=== PATIENT | male | born 1945 | race Hispanic/Latino ===

== ENCOUNTER 2018-04-01 10:40 | Observation (INO) | payer MEDICARE, OTHER ==
[2018-03-31 11:46] LABS: BASOPHILS # (AUTO) 0.1 (0.0-0.1); BASOPHILS % 0.6 % (0.0-1.0); EOSINOPHILS # (AUTO) 0.2 (0.0-0.4); EOSINOPHILS % 2.4 % (0.0-6.0); HEMATOCRIT 41.4 % (38.2-49.6); HEMOGLOBIN 14.1 g/dL (14.0-18.0); LYMPHOCYTES # (AUTO) 2.4 (1.0-3.2); LYMPHOCYTES % 25.6 % (18.0-39.1); MEAN CORPUSCULAR HEMOGLOBIN 31.9 pg (28-32); MEAN CORPUSCULAR HGB CONC 34.1 g/dL (31-35); MEAN CORPUSCULAR VOLUME 93.7 fL (81-99); MONOCYTES # (AUTO) 0.7 (0.2-0.8); MONOCYTES % 7.3 % (4.4-11.3); NEUTROPHILS # (AUTO) 6.1 (2.1-6.9); NEUTROPHILS % 63.6 % (38.7-80.0); PLATELET COUNT 287 x10e3/uL (140-360); RED BLOOD COUNT 4.42 x10e6/uL (4.3-5.7); RED CELL DISTRIBUTION WIDTH 13.2 % (11.7-14.4)
[2018-03-31 12:07] LABS: ALANINE AMINOTRANSFERASE 30 IU/L (0-55); ALBUMIN 3.7 g/dL (3.5-5.0); ALBUMIN/GLOBULIN RATIO 1.2 (0.8-2.0); ALKALINE PHOSPHATASE 90 IU/L (40-150); BLOOD UREA NITROGEN 14 mg/dL (7-26); BUN/CREATININE RATIO 16 (6-25); CARBON DIOXIDE 25 mmol/L (22-29); CHLORIDE 106 mmol/L (98-107); CHOL/HDL RATIO 3.8 (3.9-4.7); CHOLESTEROL 183 MD/DL (0-199); CREATININE, SERUM 0.88 mg/dL (0.72-1.25); EST GLOMERULAR FILTRATION RATE > 60 ML/MIN (60-); GLUCOSE 112 mg/dL (74-118); HDL CHOLESTEROL 48 MG/DL (40-60); LDL CHOLESTEROL 107 MG/DL (60-130); SODIUM 138 mmol/L (136-145); TRIGLYCERIDES 140 MG/DL (0-149)
[2018-04-01] VITALS (12 sets, daily range): BP systolic 140–174; BP diastolic 68–87
[~2018-04-01] VITALS: Ht 170.2 cm; Wt 89.8 kg
[~2018-04-01 10:40] MED LIST: ARICEPT5 MG PO; ASPIR 8181 MG PO; ATORVASTATIN CA10 MG PO; CLOPIDOGREL75 MG PO; LEXAPRO10 MG PO; METFORMIN HCL500 MG PO; OMEPRAZOLE40 MG PO
--- OUTSIDE RECORDS SUMMARY | 2018-04-01 10:43 | XMS REPORT | Clinical Summary ---
Author Author [facility] Organization [facility] Address Unknown Phone Unavailable Care Team Providers Care Sole Sewer Hand Name Role Phone Breanna Romero MD PCP Allergies No Known Allergies Medications End Date Status Medication Sig Dispensed Refills Start Date Active donepezil (ARICEPT) 5 MG 1 tablet 0 tablet daily. 8 Active losartan (COZAAR) 50 MG 1 tablet 1 tablet daily. 7 Active furosemide (LASIX) 40 mg 1 tablet 2 1 tablet (two) times a 7 week. Active potassium chloride 20 mEq 1 tablet 2 1 tablet extended release (two) times a 7 week. Active escitalopram (LEXAPRO) 20 Take 20 mg by 0 MG tablet mouth daily. Active clopidogrel (PLAVIX) 75 Take 75 mg by 0 mg tablet mouth daily. Active atorvastatin (LIPITOR) 10 Take 10 mg by 0 MG tablet mouth daily. Active omeprazole (PriLOSEC) 20 Take 20 mg by 0 MG capsule mouth daily. 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 Essential hypertension 05/25/2017 Other hyperlipidemia 05/25/2017 Dyspnea on exertion 05/25/2017 Tobacco abuse counseling 05/25/2017 Encounters Care Team Description Date Type Specialty Suzie Warren MD Vertebral artery occlusion, right (Primary Dx); History of ischemic vertebrobasilar artery brainstem stroke; Essential hypertension; Other hyperlipidemia; Dyspnea on exertion; Tobacco abuse counseling 05/25/2017 Office Visit Neurology after 03/31/2017 Family History Medical History Relation Name Comments Hypertension Father Hypertension Mother Relation Name Status Comments Father (Age 80) Mother (Age 96) Social History Date Tobacco Use Types Packs/Day Years Used Current Every Day Smoker 0.25 Smokeless Tobacco: Never Used Alcohol Use Drinks/Week oz/Week Comments Yes 1 Cans of 0.6 beer Sex Assigned at Date Recorded Not on file Industry Job Start Date Occupation Not on file Not on file Not on file Travel End Travel History Travel Start No recent travel history available. Last Filed Vital Signs Time Taken Vital Sign Reading 05/25/2017 1:21 PM [employer] Blood Pressure 135/71 05/25/2017 1:21 PM [employer] Pulse 77 - Temperature - - Respiratory Rate - - Oxygen Saturation - - Inhaled Oxygen - Concentration 05/25/2017 1:21 PM [employer] Weight 85.3 kg (188 lb) 05/25/2017 1:21 PM [employer] RE[employer] Height 170.2 cm (5' 7") 05/25/2017 1:21 PM [employer] Body Mass Index 29.44 Plan of Treatment Health Maintenance Due Date Last Done Comments COLON CANCER SCREENING 11/12/1995 SHINGLES VACCINES (1 of 11/12/1995 2) PNEUMOCOCCAL 2010 POLYSACCHARIDE VACCINE AGE 65 AND OVER PNEUMOCOCCAL-13 2010 INFLUENZA VACCINE 11/03/2017 Results Not on fileafter 03/31/2017 Insurance Payer Benefit Subscriber ID Type Phone Address Plan / Group MEDICARE MEDICARE xxxxxxxxxx Medicare [place], [place] PART A AND B BANKERS LIFE AND CASUALTY BANKERS xxxxxxxxx Commercial LIFE AND CASUALTY Advance Directives Patient has advance care planning documents on file. For more information, davida enciso contact: Pj Oconnor [id number] [place] [address]
--- OUTSIDE RECORDS SUMMARY | 2018-04-01 10:44 | XMS REPORT | Summary of Care ---
Author Organization Unknown Address Unknown Phone Unavailable Encounter [facility] Tisha(JOHN) [id number] Date(s): 08/17/14 - 08/20/[address] [facility] [address] [place] [address]- Discharge Disposition: Home Physician Attending: Kobi Willard MD Physician_Referring: Kobi Willard MD Vital Signs 1 2 3 Most recent to oldest [Reference Range]: 170.18 cm (08/13/14 10:41 AM) Height 98.2 DegF (08/13/14 10:41 AM) Temperature Oral [96.4-99.1 DegF] 183/82 mmHg *HI* (08/20/14 11:00 AM) 186/85 mmHg *HI* (08/20/14 10:45 AM) 191/96 mmHg *HI* (08/20/14 10:30 AM) Blood Pressure [90-140/60-90 mmHg] 13 BRMIN *LOW* (08/20/14 10:30 AM) 12 BRMIN *LOW* (08/20/14 10:15 AM) 10 BRMIN *LOW* (08/20/14 10:00 AM) Respiratory Rate [14-20 BRMIN] 57 bpm *LOW* (08/20/14 6:27 AM) 61 bpm (08/13/14 10:41 AM) Peripheral Pulse Rate [60-100 bpm] 80 kg (08/13/14 10:41 AM) Weight 27.62 m2 (08/13/14 10:41 AM) Body Mass Index Problem List Condition Effective Dates Status Health Status Informant Blind Active eye(Confirmed)1 Cholesterol(Confirme Active d) Hypertension(Confirm Active ed) Poor peripheral Active circulation(Confirme d) Prostate Active cancer(Confirmed) PVD - Peripheral Active vascular disease(Confirmed) Smoker(Confirmed) Active Stroke(Confirmed)2 Resolved 1left 2no s/s Allergies, Adverse Reactions, Alerts Substance Reaction Severity Status NKDA Active Medications Cipro 400 mg, 200 mL, Route: IVPB, Drug form: INJ, ONCE, Dosing Weight 80, kg, Start d ate: 08/20/14 8:01:00, Stop date: 08/20/14 8:01:00 Notes: Do not refrigerate Start Date: 08/20/14 Stop Date: 08/20/14 Status: Ordered Colace 100 mg oral capsule 100 mg=1 cap, PO, BID, PRN Constipation, # 20 cap, 0 Refill(s) Start Date: 08/20/14 Status: Ordered Flomax 0.4 mg oral capsule 0.4 mg=1 cap, PO, Daily, # 30 cap, 0 Refill(s) Start Date: 08/13/14 Stop Date: 08/20/14 Status: Discontinued Lactated Ringers Injection IV 1000 mL 1,000 mL, Rate: 25 ml/hr, Infuse over: 40 hr, Route: IV, Dosing Weight 80 kg, To murtaza Volume: 1,000, Start date: 08/20/14 7:32:00, Duration: 30 day, Stop date: 7:31:00 Start Date: 08/20/14 Stop Date: 08/20/14 Status: Discontinued Pyridium 200 mg oral tablet 200 mg=1 tab, PO, TID, PRN Dysuria, X 2 day, # 6 tab, 0 Refill(s) Start Date: 08/20/14 Stop Date: 08/22/14 Status: Completed Tylenol with Codeine #3 oral tablet 1 - 2 tab, PO, Q6H, PRN Pain, X 4 day, # 32 tab, 0 Refill(s) Start Date: 08/20/14 Stop Date: 08/24/14 Status: Ordered Unknown Home Medication 4 drops, TID, ear drops left ear, Refill(s) 0 Special Instructions: ear drops left ear Start Date: 08/13/14 Status: Ordered Results ELECTROLYTES Most recent to 1 oldest [Reference Range]: Sodium Lvl [135-145 140 mEq/L mEq/L] (08/13/14 11:22 AM) Potassium Lvl 3.8 mEq/L [3.5-5.1 mEq/L] (08/13/14 AM) Chloride Lvl [95-109 106 mEq/L mEq/L] (08/13/14 AM) CO2 [24-32 mEq/L] 28 mEq/L (08/13/14 AM) AGAP [10.0-20.0 9.8 mEq/L mEq/L] *LOW* (08/13/14) CHEM PANEL Most recent to 1 oldest [Reference Range]: Creatinine Lvl 1.0 mg/dL [0.5-1.4 mg/dL] (08/13/14 AM) eGFR 77 mL/min/1.73m2 1 *NA* (08/13/14 AM) BUN [7-22 mg/dL] 8 mg/dL (08/13/14 AM) Glucose Lvl [70-99 123 mg/dL 2 mg/dL] *HI* (08/13/14 AM) Calcium Lvl 8.7 mg/dL [8.5-10.5 mg/dL] (08/13/14 AM) 1Result Comment: The eGFR is calculated using the CKD-EPI formula. In most young, healthy individuals the eGFR will be >90 mL/min/1.73m2. The eGFR declines with age. An eGFR of 60-89 may be normal in some populations, particularly the elderly, for whom the CKD-EPI formula has not been extensively validated. Use of the eGFR is not recommended in the following populations: Individuals with unstable creatinine concentrations, including patients and those with serious co-morbid conditions. Patients with extremes in muscle mass or diet. The data above are obtained from the National Kidney Disease Education Program ( NKDEP) which additionally recommends that when the eGFR is used in patients with extremes of body mass index for purposes of drug dosing, the eGFR should be mul tiplied by the estimated BMI. 2Interpretive Data: Adult reference range values reflect the clinical guidelines of the [place] [employer]. URINE AND STOOL Most recent to 1 oldest [Reference Range]: UA Turbidity [Clear] Clear (08/13/14:22 AM) UA Color [Yellow] Yellow *NA* (08/13/14 AM) UA pH [5.0-8.0] 5.0 (08/13/14 AM) UA Spec Grav 1.013 [<=1.030] (08/13/14 AM) UA Glucose [Negative Negative mg/dL mg/dL] *NA* (08/13/14 AM) UA Blood [Negative] Small *ABN* (08/13/14 AM) UA Ketones [Negative Negative mg/dL mg/dL] *NA* (08/13/14) UA Protein [Negative Negative mg/dL mg/dL] (08/13/14 AM) UA Urobilinogen 2.0 mg/dL [0.1-1.0 mg/dL] *HI* (08/13/14 AM) UA Bili [Negative] Negative *NA* (08/13/14) UA Leuk Est Negative [Negative] (08/13/14) UA Nitrite Negative [Negative] (08/13/14) UA WBC [0-5 /HPF] <1 /HPF (08/13/14 AM) UA RBC [0-2 /HPF] 3 /HPF *HI* (08/13/14 AM) UA Sq Epi None Seen *NA* (08/13/14) HEMATOLOGY Most recent to 1 oldest [Reference Range]: WBC [3.7-10.4 K/CMM] 10.5 K/CMM *HI* (08/13/14 AM) RBC [4.70-6.10 4.58 M/CMM M/CMM] *LOW* (08/13/14 AM) Hgb [14.0-18.0 g/dL] 14.8 g/dL (08/13/14 AM) Hct [42.0-54.0 %] 42.4 % (08/13/14 AM) MCV [80.0-94.0 fL] 92.6 fL (08/13/14 AM) MCH [27.0-31.0 pg] 32.3 pg *HI* (08/13/14 AM) MCHC [32.0-36.0 34.9 g/dL g/dL] (08/13/14 AM) RDW [11.5-14.5 %] 13.9 % (08/13/14 AM) Platelet [133-450 224 K/CMM K/CMM] (08/13/14 AM) MPV [7.4-10.4 fL] 9.3 fL (08/13/14 AM) Segs [45.0-75.0 %] 67.0 % (08/13/14 AM) Lymphocytes 25.7 % [20.0-40.0 %] (08/13/14 AM) Monocytes [2.0-12.0 4.5 % %] (08/13/14 AM) Eosinophils [0.0-4.0 1.4 % %] (08/13/14 AM) Basophils [0.0-1.0 1.4 % %] *HI* (08/13/14 AM) Segs-Bands # 7.1 K/CMM [1.5-8.1 K/CMM] (08/13/14:22 AM) Lymphocytes # 2.7 K/CMM [1.0-5.5 K/CMM] (08/13/14 AM) Monocytes # [0.0-0.8 0.5 K/CMM K/CMM] (08/13/14:22 AM) Eosinophils # 0.1 K/CMM [0.0-0.5 K/CMM] (08/13/14:22 AM) Basophils # [0.0-0.2 0.1 K/CMM K/CMM] (08/13/14:22 AM) Immunizations No data available for this section Procedures Procedure Date Related Diagnosis Body Site Bypass Social History Social History Type Response Alcohol Current, Type Beer. Smoking Status Former smoker; Type: Cigarettes; Tobacco use per day: 10; Number of years: 50; Exposure to Tobacco Smoke None; Cigarette Smoking Last 365 Days Yes; Reg Smoking Cessation Counseling Yes Assessment and Plan No data available for this section
--- OUTSIDE RECORDS SUMMARY | 2018-04-01 10:44 | XMS REPORT | Continuity of Care Document ---
Author Author Mayra michael [facility] Interface Address Unknown Phone Unavailable Problems Problem Status Onset Date Classification Date Reported Comments Source R06.00 Active 12/17/2017 [facility] Shortness of breath 04/23/2017 07/26/2017 [facility] R06.02, R07.9 Active 04/16/2017 [facility] DYSPHEA, CHEST PAIN Active 04/09/2017 [facility] Discharge Diagnosis: Dehydration 12/14/2015 12/17/2015 [facility] Discharge Diagnosis: Gastroenteritis 12/14/2015 12/17/2015 [facility] FEVER Active 12/14/2015 [facility] * Active 06/25/2015 [facility] TIA VS CVA Active 06/17/2015 [facility] UNK Active 08/07/2014 [facility] 600.21/788.20/185 Active 08/07/2014 [facility] 440.21/443.9 Active 10/06/2011 [facility] BLE DX:440.21 Active 09/18/2011 [facility] PVD 443.9 Active 01/06/2011 [facility] PVD Active 12/16/2010 [facility] 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 [facility] [place] Cholesterol Active Problem 04/22/2017 [facility] [place] Hypertension Active Problem 07/26/2017 [facility] [place] Poor peripheral circulation Active Problem 07/26/2017 [facility] [place] Prostate cancer Active Problem 07/26/2017 [facility] [place] PVD - Peripheral vascular disease Active Problem 07/26/2017 [facility] [place] Smoker Active Problem 07/26/2017 [facility] [place] Stroke<sup>2</sup> Resolved Problem 07/26/2017 no s/s [facility] [place] Chest pain, unspecified 07/26/2017 [facility] Occlusion and stenosis of right vertebral artery 07/26/2017 [facility] Atherosclerosis of aorta 07/26/2017 [facility] Dyspnea, unspecified 07/22/2017 [facility] Centrilobular emphysema 07/22/2017 [facility] Fatty liver, not elsewhere classified 07/22/2017 [facility] PERIPH VASCULAR DIS NOS Active [facility] ATH EXT NTV AT W CLAUDCT Active [facility] BPH LOC W URIN OBS/LUTS Active [facility] RETENTION OF URINE NOS Active [facility] MALIGN NEOPL PROSTATE Active [facility] RIGHT SIDE STROKE Active [facility] [place] 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 WASTE: F/P - Black; E - Municipal Trash Bin Inactive 04/15/2017 [facility] Ondansetron 4 MG Oral Tablet [Zofran] 4 mg=1 tab, PO, BID, X 5 day, # 10 tab, 0 Refill(s) Active 12/14/2015 [facility] Sodium Chloride 0.154 MEQ/ML Injectable Solution 500 mL, 500 ml/hr, Infuse Over: 1 hr, Route: IV, ONCE, Priority: STAT, Dosing Weight 81.818 kg, Start date: 12/14/15 11:44:00 CDT, Duration: 1 doses or times, Stop date: 12/14/15 11:44:00 CDT Inactive 12/14/2015 [facility] Zofran 4 mg, Route: IVP, Drug form: INJ, ONCE, Dosing Weight 81.818, kg, Priority: STAT, Start date: 12/14/15 11:44:00 CDT, Stop date: 12/14/15 11:44:00 CDT Inactive 12/14/2015 [facility] Sodium Chloride 0.154 MEQ/ML Injectable Solution 500 mL, 2,000 ml/hr, Infuse Over: 15 minutes, Route: IV, ONCE, Priority: STAT, Dosing Weight 81.818 kg, Start date: 12/14/15 11:21:00 CDT, Duration: 1 doses or times, Stop date: 12/14/15 11:21:00 CDT Inactive 12/14/2015 [facility] Saline Flush 0.9% 10 mL, Route: IVP, Drug Form: INJ, Dosing Weight 81.818, kg, PRN, PRN Line Flush, Start date: 12/14/15 11:21:00 CDT, Duration: 30 day, Stop date: 01/13/16 11:20:00 CDTNotes: (Same as: BD Posiflush) Inactive 12/14/2015 [facility] Lipitor 20 mg, 2 tab, Route: PO, Drug form: TAB, Bedtime, Dosing Weight 81.364, kg, Start date: 06/18/15 21:00:00, Duration: 30 day, Stop date: 07/17/15 21:00:00Notes: (Same As: Lipitor) Inactive 06/19/2015 [facility] Amlodipine 5 MG Oral Tablet [Norvasc] 5 mg=1 tab, PO, Daily, # 30 tab, 1 Refill(s) Active 06/18/2015 [facility] Aspirin 81 MG Enteric Coated Tablet 81 mg=1 tab, PO, Daily, # 90 tab, 0 Refill(s) Active 06/18/2015 [facility] clopidogrel 75 mg oral tablet 75 mg=1 tab, PO, Daily, # 90 tab, 0 Refill(s) Active 06/18/2015 [facility] atorvastatin 10 MG Oral Tablet [Lipitor] 10 mg=1 tab, PO, Bedtime, # 30 tab, 0 Refill(s) Active 06/18/2015 [facility] Plavix 75 mg, 1 tab, Route: PO, Drug form: TAB, Daily, Dosing Weight 81.364, kg, Start date: 06/18/15 10:30:00, Duration: 30 day, Stop date: 07/18/15 9:00:00Notes: (Same As: Plavix) Inactive 06/18/2015 [facility] Aspirin 81 MG Enteric Coated Tablet 81 mg, 1 tab, Route: PO, Drug form: ECTAB, Daily, Dosing Weight 81.364, kg, Start date: 06/18/15 10:30:00, Duration: 30 day, Stop date: 07/18/15 9:00:00Notes: Do not crush or chew. (Same As: Ecotrin) Inactive 06/18/2015 [facility] Ondansetron 4 mg, 2 mL, Route: IVP, Drug form: INJ, Q6H, Dosing Weight 81.364, kg, PRN Nausea & Vomiting, Start date: 06/17/15 17:07:00, Duration: 30 day, Stop date: 07/17/15 17:06:00Notes: (Same as: Sukhwinder) MEDICATION WASTE Product Size: 4 mg Product Wasted: ___ mg No Longer Active 06/17/2015 [facility] Acetaminophen 650 mg, 2 tab, Route: PO, Drug form: TAB, Q4H, Dosing Weight 81.364, kg, PRN Pain 1-3/Temp > 100.4 F, Start date: 06/17/15 17:07:00, Duration: 30 day, Stop date: 07/17/15 17:06:00Notes: Do not exceed 4 gm/day. (Same as: Tylenol) No Longer Active 06/17/2015 [facility] Aspirin 81 MG Enteric Coated Tablet 81 mg, 1 tab, Route: PO, Drug form: ECTAB, ONCE, Dosing Weight 80, kg, Start date: 06/17/15 16:19:00, Stop date: 06/17/15 16:19:00Notes: Do not crush or chew. (Same As: Ecotrin) Inactive 06/17/2015 [facility] Phenazopyridine hydrochloride 200 MG Oral Tablet [Pyridium] 200 mg=1 tab, PO, TID, PRN Dysuria, X 2 day, # 6 tab, 0 Refill(s) No Longer Active 08/20/2014 [facility] Docusate Sodium 100 MG Oral Capsule [Colace] 100 mg=1 cap, PO, BID, PRN Constipation, # 20 cap, 0 Refill(s) Active 08/20/2014 [facility] Acetaminophen 300 MG / Codeine Phosphate 30 MG Oral Tablet [Tylenol with Codeine #3] 1 - 2 tab, PO, Q6H, PRN Pain, X 4 day, # 32 tab, 0 Refill(s) Active 08/20/2014 [facility] Cipro 400 mg, 200 mL, Route: IVPB, Drug form: INJ, ONCE, Dosing Weight 80, kg, Start date: 08/20/14 8:01:00, Stop date: 08/20/14 8:01:00Notes: Do not refrigerate Inactive 08/20/2014 [facility] Calcium Chloride 0.0014 MEQ/ML / Potassium Chloride 0.004 MEQ/ML / Sodium Chloride 0.103 MEQ/ML / Sodium Lactate 0.028 MEQ/ML Injectable Solution 1,000 mL, Rate: 25 ml/hr, Infuse over: 40 hr, Route: IV, Dosing Weight 80 kg, Total Volume: 1,000, Start date: 08/20/14 7:32:00, Duration: 30 day, Stop date: 09/19/14 7:31:00 Inactive 08/20/2014 [facility] Unknown Home Medication 4 drops, TID, ear drops left ear, Refill(s) 0Special Instructions: ear drops left ear Active 08/13/2014 [facility] Tamsulosin hydrochloride 0.4 MG Oral Capsule [Flomax] 0.4 mg=1 cap, PO, Daily, # 30 cap, 0 Refill(s) No Longer Active 08/13/2014 [facility] cefazolin 2 gm, 100 mL, Route: IVPB, Drug form: INJ, ONCALL, Start date: 10/16/11 10:00:00, Duration: 1 doses or times IVPB No Longer Active Kwan 10/16/2011 [facility] Allergies, Adverse Reactions, Alerts Substance Category Reaction Severity Reaction type Status Date Reported Comments Source Immunizations Immunization Date Given Site Status Last Updated Comments Source Results Order Name Results Value Reference Range Date Interpretation Comments Source Chest wo contrast CT Chest wo contrast CT CT CHEST WITHOUT CONTRAST HISTORY: Chronic obstructive pulmonary disease. TECHNIQUE: Helical chest CT was performed from the thoracic inlet through the upper abdomen without IV contrast. Images reviewed in 3 planes. DLP: 561 mGy-cm CT imaging performed at this facility utilizes radiation dose optimization techniques which include one or more of the following: -Automated exposure control -Adjustment of the mA and/or kV according to patient size -Use of iterative reconstruction COMPARISON: CT 04/15/2017. FINDINGS: LUNGS \T\ PLEURA: Emphysematous changes are again demonstrated, primarily upper lobe distribution. No lung mass or infiltrate. No pleural abnormality. Central airways are widely patent. MEDIASTINUM, MANDI, AXILLAE: Mild atheromatous calcifications noted. No aneurysm. Mild coronary calcification. No mediastinal mass, adenopathy or pericardial disease. No significant axillary abnormality. ABDOMEN: Evidence of hepatic steatosis. SKELETAL: No significant skeletal abnormality is apparent. IMPRESSION: 1. Emphysema. 2. Hepatic steatosis. 3. Atherosclerosis. SL: [id number] 03/10/2018 - - Read by: Matthew Ramirez MD Dictated Date/time: 03/10/18 16:15 Electronically Signed by: Matthew Ramirez MD 03/10/18 16:31 FINAL REPORT [facility] Chest 2 views DX Chest 2 views DX EXAM: XR CHEST 2 VIEWS DATE: 12/17/2017 11:42 AM CDT : 1945; Age: 72 years y/o Male INDICATION: - R06.00 Dyspnea, unspecified COMPARISON: April 15, 2017 TECHNIQUE: PA and lateral chest radiographs. FINDINGS: Lines, tubes and hardware: None. Lungs and pleura: Emphysema without consolidation. No pleural effusion. Heart and mediastinum: The heart size is normal for technique. Vascular calcifications are present at the aorta. Pulmonary vascularity is normal. IMPRESSION: No acute cardiopulmonary process. Emphysema. SL: [id number] 12/17/2017 - - Read by: Bozena Zambrano Dictated Date/time: 12/17/17 15:35 Electronically Signed by: Bozena Zambrano 12/17/17 15:36 FINAL REPORT [facility] Brain/Neck CTA Brain/Neck CTA Study: Brain/Neck CTA 04/19/2017 3:29 PM [employer] Ordering Physician: Foster Araujo MD Clinical Indication: CT DLP 1343 MGYCM; 100 ML OMNI \T\ 100 ML SALINE - Shortness of breath; chest pain; past medical history significant for right lower extremity arterial bypass surgery and prostate carcinoma. Comparison: None TECHNIQUE: Sequential trans-axial images of the head and neck are obtained with a multi-detector helical CT after intravenous administration of 100 cc Omnipaque 350. Coronal and sagittal reconstructions are acquired, along with 3D post- processing imaging for exam interpretation. GFR: 75. CT Radiation Dose DLP 1343 mGy-cm. CTA NECK: FINDINGS: Moderate hard and soft plaque noted in the hatfield of the thoracic aorta. A 1 cm ulcerated plaque is present along the posterior wall of the proximal descending thoracic aorta (axial series 9 images 563 through 572, coronal series 10 images 96-98, and sagittal series 11 images 88 and 89). There is calcium at the origin of the left subclavian artery, without significant luminal narrowing. Origins of the left common carotid, innominate, right subclavian, right common carotid and left vertebral arteries are normal in appearance. There is probably occlusion of the right vertebral artery at its origin. Mild irregularity and luminal narrowing of the subclavian arteries is noted bilaterally, slightly worse on the left than the right. The left vertebral artery is dominant. There is slight irregularity of the left vertebral artery, without evidence for moderate or high-grade luminal stenosis. The proximal right vertebral artery is not visualized, suggesting occlusion with retrograde filling distally. Patent posterior inferior cerebellar artery branches are noted bilaterally. The left common carotid artery is mildly diminished in size as compared to the right throughout its course. This probably relates to diminished inflow requirement; the A1 segment of left anterior cerebral artery is hypoplastic and the left A2 segment is supplied primarily by the right anterior circulation via a patent anterior communicating artery. The common carotid arteries, carotid bulbs and cervical internal and external carotid arteries bilaterally are otherwise unremarkable. There is no evidence for arterial dissection. If there is further concern, recommend conventional angiography for complete assessment. Any reported ICA stenosis directly references the distal internal carotid diameter as the denominator for stenosis measurement. NON-VASCULAR STRUCTURES: There are extensive bullous changes in the upper lung zones bilaterally. Advanced degenerative cervical spondylosis and facet arthrosis are present. IMPRESSION: There is occlusion of the right vertebral artery at its origin, with retrograde filling. There is significant carotid stenosis by NASCET criteria. 1 cm ulcerated plaque noted involving the posterior wall of the proximal descending thoracic aorta. There is mild irregularity and luminal narrowing of the subclavian arteries bilaterally. CTA HEAD: CTA: The distal cervical, petrous, cavernous and supraclinoid segments of the internal carotid arteries, as well as anterior and middle cerebral artery branches bilaterally are normal in appearance. The anterior communicating artery is patent. Posterior communicating arteries are not visualized and are considered hypoplastic. The distal left vertebral artery is dominant and normal in appearance. Proximal occlusion with retrograde filling of the distal right vertebral artery is thought to be present. There is moderate irregularity and narrowing of the distal right vertebral artery at the junction of the intradural and extradural portions. Patent posterior inferior cerebellar artery branches are seen bilaterally. Mild irregularity and luminal narrowing of the mid basilar artery is seen. Patent anterior inferior cerebellar artery branches are seen bilaterally. A moderate stenosis is suspected at the junction of the P1 and P2 segments of the right posterior cerebral artery. There is mild luminal narrowing of the proximal P1 segment of the left posterior cerebral artery. Proximal superior cerebellar arteries are grossly normal in appearance. There is no evidence for AVM or aneurysm. Dural venous sinuses are patent. NON-CONTRAST BRAIN IMAGES: Mild to moderate patchy decreased density is present in the white matter of the cerebral hemispheres, likely reflecting chronic small vessel ischemic disease. A moderate old left posterior cerebral artery infarct is present, located in the parafalcine left occipital lobe. There are multiple old lacunar infarcts in the basal ganglia bilaterally, larger and more numerous on the right than the left. A large old lacunar infarct is present in the maria c, at and just left of midline. The skull is intact. A 1 cm retention cyst is present in the inferior right maxillary antrum. Mastoid air cells are clear. The patient has undergone previous left cataract surgery. CONTRAST ENHANCED BRAIN IMAGES: The contrast-enhanced images of the brain demonstrate no pathologic parenchymal or leptomeningeal enhancements. If there is further concern, recommend conventional angiography for complete assessment. IMPRESSION: Proximal occlusion and distal retrograde filling of the right vertebral artery noted. There is mild stenosis of the midportion of the basilar artery. Extensive chronic ischemic changes are present as described. SL: [id number] 04/19/2017 - - Read by: She Wagner MD Dictated Date/time: 04/19/17 19:00 Electronically Signed by: She Wagner MD 04/19/17 19:43 FINAL REPORT [facility] Chest w contrast CT Chest w contrast CT Clinical Indication: Chest pain. Dyspnea Comparison: No prior CT available for comparison. Correlation made to same day chest radiographs.. TECHNIQUE: Sequential trans-axial images were obtained thru the chest and upper abdomen after administration of iodinated contrast. Coronal and sagittal reconstructions were obtained. 75 cc of Omnipaque contrast material was used for the exam. Dose: QCV=535 mGy-cm FINDINGS: LUNG PARENCHYMA AND PLEURA: There is severe upper lobe predominant centrilobular emphysema. No focal airspace consolidation. No pleural effusion or pneumothorax. AIRWAYS: The central airway is unremarkable. Trachea is midline. MEDIASTINUM AND SOFT TISSUES: No significant mediastinal lymphadenopathy. HEART: The cardiac chambers are unremarkable. There is no pericardial effusion. VASCULAR STRUCTURES: The aorta is calcified and atherosclerotic. Aorta and pulmonary artery normal in caliber. Questionable intimal flap along the subclavian artery origin (series 3, image 11-12, series 6B, image 71-72). Dissection is possible and cannot be excluded. Recommend CT angiogram. VISUALIZED UPPER ABDOMEN: There is hepatic steatosis. There is a sub-5 mm hypodense lesion in the liver, too small to characterize. OSSEOUS STRUCTURES: No acute abnormality seen. IMPRESSION: 1. Questionable intimal flap in the subclavian artery, suggesting possible focal dissection. This could also reflect artifact. CT angiogram is recommended for further evaluation. 2. Severe upper lobe predominant centrilobular emphysema. Case discussed with Dr. Araujo on 04/15/2017 3:30 PM. SL: [id number] 04/15/2017 - - Read by: Kobi Stewart MD Dictated Date/time: 04/15/17 15:20 Electronically Signed by: Kobi Stewart MD 04/15/17 15:33 FINAL REPORT [facility] Chest 2 views DX Chest 2 views DX Clinical Indication: - Dyspnea, Chest Pain Comparison: None FINDINGS: PA and lateral chest radiographs were obtained. MEDIASTINUM: The cardiac silhouette is normal in size. The aorta demonstrates atherosclerotic calcification. LUNGS: Lung volumes are maintained. There are no focal infiltrates or effusions. There are no pneumothoraces noted. BONES: The visualized osseous structures are unremarkable. IMPRESSION: No acute infiltrates or effusions. SL: [id number] 04/15/2017 - - Read by: Alycia Skelton MD Dictated Date/time: 04/15/17 10:23 Electronically Signed by: Alycia Skelton MD 04/15/17 10:24 FINAL REPORT [facility] UA Urobilinogen <=1.0 mg/dL 0.1 - 1.0 12/14/2015 [facility] UA Color Yellow *NA* (12/14/15 1:55 PM) Yellow 12/14/2015 [facility] UA Turbidity Slight *ABN* (12/14/15 1:55 PM) Clear 12/14/2015 [facility] STOOL UA Hyal Cast 13 /LPF 0 - 2 12/14/2015 [facility] STOOL UA Mucus Few /LPF None Seen /LPF 12/14/2015 [facility]INE [facility] STOOL UA WBC 1 /HPF 0 - 5 12/14/2015 [facility] URINE AND STOOL UA Sq Epi Occasional /LPF Few /LPF 12/14/2015 [facility] URINE AND STOOL UA Bacteria Occasional /HPF None Seen /HPF 12/14/2015 [facility] URINE AND STOOL UA RBC 4 /HPF 0 - 2 12/14/2015 [facility] URINE AND STOOL UA Leuk Est Small *ABN* (12/14/15 1:55 PM) Negative 12/14/2015 [facility] URINE AND STOOL UA Ketones Negative mg/dL Negative mg/dL 12/14/2015 [facility] URINE AND STOOL UA Bili Negative *NA* (12/14/15 1:55 PM) Negative 12/14/2015 [facility] URINE AND STOOL UA Nitrite Negative (12/14/15 1:55 PM) Negative 12/14/2015 [facility] URINE AND STOOL UA Blood Small *ABN* (12/14/15 1:55 PM) Negative 12/14/2015 [facility] URINE AND STOOL UA Glucose Negative mg/dL Negative mg/dL 12/14/2015 [facility] URINE AND STOOL UA pH 5.0 5.0 - 8.0 12/14/2015 [facility] URINE AND STOOL UA Spec Grav 1.027 <=1.030 12/14/2015 [facility] URINE AND STOOL UA Protein 100 mg/dL Negative mg/dL 12/14/2015 [facility] CARDIAC ENZYMES Total CK 79 unit/L 12 - 191 12/14/2015 [facility] CARDIAC ENZYMES Troponin-I null 0.00 - 0.40 12/14/2015 [facility] CARDIAC ENZYMES CK MB 0.9 ng/mL 0.5 - 3.6 12/14/2015 [facility] CARDIAC ENZYMES CK MB Index 1.1 0.0 - 2.5 12/14/2015 [facility] CHEM PANEL Amylase Lvl 24 unit/L 25 - 115 12/14/2015 [facility] CHEM PANEL Lipase Lvl 70 unit/L 73 - 393 12/14/2015 [facility] CHEM PANEL eGFR 58 mL/min/1.73m2 12/14/2015 Result Comment: The eGFR is calculated using the [...] from the National Kidney Disease Education Program (NKDEP) which additionally recommends that when the eGFR is used in patients with extremes of body mass index for purposes of drug dosing, the eGFR should be multiplied by the estimated BMI. [facility] CHEM PANEL CO2 25 meq/L 24 - 32 12/14/2015 [facility] CHEM PANEL Potassium Lvl 3.5 meq/L 3.5 - 5.1 12/14/2015 [facility] CHEM PANEL Chloride Lvl 106 meq/L 95 - 109 12/14/2015 [facility] CHEM PANEL Sodium Lvl 140 meq/L 135 - 145 12/14/2015 [facility] CHEM PANEL Calcium Lvl 8.0 mg/dL 8.5 - 10.5 12/14/2015 [facility] CHEM PANEL AGAP 12.5 meq/L 10.0 - 20.0 12/14/2015 [facility] CHEM PANEL BUN 25 mg/dL 7 - 22 12/14/2015 [facility] CHEM PANEL Glucose Lvl 135 mg/dL 70 - 99 12/14/2015 [facility] CHEM PANEL Creatinine Lvl 1.25 mg/dL 0.50 - 1.40 12/14/2015 [facility] PTT 33.1 s 22.9 - 35.8 12/14/2015 [facility] Hct 41.7 % 42.0 - 54.0 12/14/2015 [facility] MCV 90.3 fL 80.0 - 94.0 12/14/2015 [facility] Platelet 177 K/CMM 133 - 450 12/14/2015 [facility] MPV 9.1 fL 7.4 - 10.4 12/14/2015 [facility] MCH 29.9 pg 27.0 - 31.0 12/14/2015 [facility] MCHC 33.2 g/dL 32.0 - 36.0 12/14/2015 [facility] RDW 13.5 % 11.5 - 14.5 12/14/2015 [facility] Hgb 13.8 g/dL 14.0 - 18.0 12/14/2015 [facility] RBC 4.62 M/CMM 4.70 - 6.10 12/14/2015 [facility] WBC 9.0 K/CMM 3.7 - 10.4 12/14/2015 [facility] PT 15.6 s 12.0 - 14.7 12/14/2015 [facility] HEMATOLOGY INR 1.21 0.85 - 1.17 12/14/2015 [facility] HEMATOLOGY Monocytes 8.4 % 2.0 - 12.0 12/14/2015 [facility] HEMATOLOGY Lymphocytes # 0.6 K/CMM 1.0 - 5.5 12/14/2015 [facility] HEMATOLOGY Eosinophils 0.1 % 0.0 - 4.0 12/14/2015 [facility] HEMATOLOGY Basophils 0.2 % 0.0 - 1.0 12/14/2015 [facility] HEMATOLOGY Segs-Bands # 7.6 K/CMM 1.5 - 8.1 12/14/2015 [facility] Monocytes # 0.8 K/CMM 0.0 - 0.8 12/14/2015 [facility] Lymphocytes 7.0 % 20.0 - 40.0 12/14/2015 [facility] Segs 84.3 % 45.0 - 75.0 12/14/2015 [facility] Abdomen acute series w chest 1 view DX Abdomen acute series w chest 1 view DX CHEST, ONE VIEW AND ABDOMEN, 2 VIEWS HISTORY: Abdominal pain, acute; nausea and vomiting for several days COMPARISON: None available. FINDINGS: The lungs are clear. No pleural effusion. No pneumothorax. Heart size upper limit of normal. No free air collects under either hemidiaphragm. Bowel gas pattern is nonobstructive. No acute osseous abnormality. SL: [id number] 12/14/2015 - - Read by: Francesco Lazo MD Dictated Date/time: 12/14/15 12:01 Electronically Signed by: Francesco Lazo MD 12/14/15 12:02 FINAL REPORT [facility] Brain wo contrast CT Brain wo contrast CT Brain wo contrast CT CLINICAL HISTORY: I69.351 Hemiplegia and hemiparesis following cerebral infarction affecting right dominant side; COMPARISON: MRI brain 06/18/2015 TECHNIQUE: Contiguous transaxial images of the brain were performed without administration of IV contrast. Reformations were performed in sagittal and coronal projections. FINDINGS: BRAIN PARENCHYMA: There is no evidence for space-occupying lesions, mass effect or vasogenic edema. No evidence for parenchymal bleed, extra-axial collections or midline shift. Age-related involutional changes are present in the brain with compensatory dilation of the ventricles and subarachnoid spaces. Evolving changes of recent left pontine infarct are noted. Increased signal in the periventricular white matter is likely related to chronic ischemic change from small vessel disease. Lacunar infarcts in right centrum semiovale and right basal ganglion, unchanged. Old left occipital infarct with ex vacuo dilation of the occipital horn of left lateral ventricle, stable. CALVARIUM AND SKULL BASE: No displaced bony fractures or other significant bony abnormality is visualized. BRAINSTEM, SELLA AND ORBITS: No evidence for Chiari malformation. No space- occupying lesion is visualized in the sella. Visualized portion of the orbits are unremarkable. MASTOIDS AND PARANASAL SINUSES: Small mucous retention cyst right maxillary sinus, unchanged. The visualized paranasal sinuses are otherwise clear. Mastoid air cells are clear bilaterally. IMPRESSION: Evolving changes of recent left pontine infarct. No acute brain abnormality is noted. Further evaluation may be obtained with MRI of brain as clinically indicated. SL: [id number] 06/25/2015 - - Read by: Manuel Calhoun MD Dictated Date/time: 06/25/15 12:17 Electronically Signed by: Manuel Calhoun MD 06/25/15 12:22 FINAL REPORT [facility] Brain wo contrast MRI Brain wo contrast MRI MRI BRAIN WITHOUT CONTRAST INDICATION: Ataxia, slurred speech COMPARISON: MRI brain 11/06/2010 DISCUSSION: Image detail is degraded by motion artifacts. There is diffusion restriction and T2 FLAIR hyperintensity of the paracentral left maria c. There are generalized involutional changes of the brain and advanced microangiopathic changes of the white matter. Generalized brain atrophy and white matter signal changes appear significantly progressed since 2010. There are multiple chronic lacunar infarcts of the right basal ganglia and left thalamus. There is a chronic infarct of the parasagittal left occipital lobe, associated with ex vacuo dilatation of the occipital horn of the left lateral ventricle. There is no evidence of space occupying lesions, hemorrhage, hydrocephalus, midline shift, or extra-axial fluid collections. No suprasellar, craniocervical, or bone abnormalities are seen. IMPRESSION: 1. An acute or recent infarct of the parasagittal left maria c. This finding was discussed with the patient's nurse, Linda, at the time of dictation. 2. Chronic ischemic and age-related changes of the brain. Compared to the MRI of the brain from 2010, there is significant interval progression of generalized brain atrophy and white matter microangiopathy. SL:16 06/18/2015 - - Read by: Sunny Arthur MD Dictated Date/time: 06/18/15 09:25 Electronically Signed by: Sunny Arthur MD 06/18/15 09:37 FINAL REPORT [facility] CHEM PANEL eGFR 90 mL/min/1.73m2 06/17/2015 Result Comment: The eGFR is calculated using the [...] from the National Kidney Disease Education Program (NKDEP) which additionally recommends that when the eGFR is used in patients with extremes of body mass index for purposes of drug dosing, the eGFR should be multiplied by the estimated BMI. [facility] CHEM PANEL Total Protein 6.7 g/dL 6.4 - 8.4 06/17/2015 [facility] CHEM PANEL BUN 12 mg/dL 7 - 22 06/17/2015 [facility] CHEM PANEL Glucose Lvl 89 mg/dL 70 - 99 06/17/2015 [facility] CHEM PANEL Creatinine Lvl 0.82 mg/dL 0.50 - 1.40 06/17/2015 [facility] CHEM PANEL Potassium Lvl 3.9 meq/L 3.5 - 5.1 06/17/2015 [facility] CHEM PANEL Sodium Lvl 140 meq/L 135 - 145 06/17/2015 [facility] CHEM PANEL Chloride Lvl 107 meq/L 95 - 109 06/17/2015 [facility] CHEM PANEL Calcium Lvl 8.2 mg/dL 8.5 - 10.5 06/17/2015 [facility] CHEM PANEL CO2 29 meq/L 24 - 32 06/17/2015 [facility] CHEM PANEL Albumin Lvl 3.6 g/dL 3.5 - 5.0 06/17/2015 [facility] CHEM PANEL ALT 21 unit/L 0 - 65 06/17/2015 [facility] CHEM PANEL AST 11 unit/L 0 - 37 06/17/2015 [facility] CHEM PANEL Bili Total 0.6 mg/dL 0.2 - 1.3 06/17/2015 [facility] CHEM PANEL Alk Phos 101 unit/L 39 - 136 06/17/2015 [facility] CHEM PANEL A/G Ratio 1.2 0.7 - 1.6 06/17/2015 [facility] CHEM PANEL Globulin 3.1 g/dL 2.0 - 4.0 06/17/2015 [facility] CHEM PANEL B/C Ratio 15 6 - 25 06/17/2015 [facility] CHEM PANEL AGAP 7.9 meq/L 10.0 - 20.0 06/17/2015 [facility] HEMATOLOGY Eosinophils # 0.1 K/CMM 0.0 - 0.5 06/17/2015 [facility] HEMATOLOGY Basophils # 0.1 K/CMM 0.0 - 0.2 06/17/2015 [facility] HEMATOLOGY Segs 74.6 % 45.0 - 75.0 06/17/2015 [facility] HEMATOLOGY Monocytes 6.6 % 2.0 - 12.0 06/17/2015 [facility] Lymphocytes 16.9 % 20.0 - 40.0 06/17/2015 [facility] Lymphocytes # 1.7 K/CMM 1.0 - 5.5 06/17/2015 [facility] Monocytes # 0.7 K/CMM 0.0 - 0.8 06/17/2015 [facility] HEMATOLOGY Eosinophils 1.4 % 0.0 - 4.0 06/17/2015 [facility] Basophils 0.5 % 0.0 - 1.0 06/17/2015 [facility] Segs-Bands # 7.6 K/CMM 1.5 - 8.1 06/17/2015 [facility] MPV 9.1 fL 7.4 - 10.4 06/17/2015 [facility] HEMATOLOGY Hct 43.7 % 42.0 - 54.0 06/17/2015 [facility] HEMATOLOGY MCV 91.1 fL 80.0 - 94.0 06/17/2015 [facility] HEMATOLOGY WBC 10.2 K/CMM 3.7 - 10.4 06/17/2015 [facility] HEMATOLOGY Platelet 220 K/CMM 133 - 450 06/17/2015 [facility] RBC 4.80 M/CMM 4.70 - 6.10 06/17/2015 [facility] Hgb 14.8 g/dL 14.0 - 18.0 06/17/2015 [facility] MCH 30.7 pg 27.0 - 31.0 06/17/2015 [facility] HEMATOLOGY RDW 13.0 % 11.5 - 14.5 06/17/2015 [facility] HEMATOLOGY MCHC 33.8 g/dL 32.0 - 36.0 06/17/2015 [facility] LIPIDS VLDL 31 06/17/2015 [facility] LIPIDS LDL (Calculated) 106 mg/dL <=99 mg/dL 06/17/2015 [facility] LIPIDS Trig 153 mg/dL <=149 mg/dL 06/17/2015 [facility] LIPIDS Chol 198 mg/dL <=199 mg/dL 06/17/2015 [facility] LIPIDS HDL 61 mg/dL >=61 mg/dL 06/17/2015 [facility] LIPIDS CHD Risk 3.25 4.00 - 7.30 06/17/2015 [facility] Carotid artery Doppler bilat US Carotid artery Doppler bilat US Carotid artery Doppler bilat US CLINICAL HISTORY: Stroke, ischemic. Acute onset of slurred speech COMPARISON: none TECHNIQUE: Urbano scale, color Doppler and spectral Doppler of the cervical carotid arteries was performed. Static images are submitted for review. NOTE: Any reported ICA stenoses indirectly reference the distal internal carotid diameter as the denominator for stenosis measurement utilizing Consensus Panel Criteria. FINDINGS: There is no significant intimal thickening visualized in either the CCA. There is no significant plaque visualized at the carotid bulb or the internal carotid arteries on either side. Antegrade flow is visualized in both vertebral arteries. Visualized portion of both ECAs is unremarkable. RIGHT: ICA PSV 62 cm/sec. CCA PSV 70 cm/sec. ICA Max EDV 25 cm/sec ICA/CCA Ratio 0.9 LEFT: ICA PSV 83 cm/sec. CCA PSV 68 cm/sec. ICA Max EDV 20cm/sec ICA/CCA Ratio 1.2 IMPRESSION: No sonographic evidence for a hemodynamically significant stenosis. Consensus panel Doppler US criteria for diagnosis of ICA stenosis: Stenosis (%) ICA PSV (cm/sec) ICA EDV(cm/sec) ICA/CCA ratio <50 % <125 <40 <2.0 50-69 % 125-230 40-100 2.0-4.0 >70% but less than >230 >100 >4.0 near occlusion SL: [id number] 06/17/2015 - - Read by: Mando Velasquez MD Dictated Date/time: 06/18/15 07:30 Electronically Signed by: Mando Velasquez MD 06/18/15 07:32 FINAL REPORT [facility] ELECTROLYTES Potassium Lvl 3.8 meq/L 3.5 - 5.1 08/13/2014 [facility] ELECTROLYTES Sodium Lvl 140 meq/L 135 - 145 08/13/2014 [facility] ELECTROLYTES Chloride Lvl 106 meq/L 95 - 109 08/13/2014 [facility] ELECTROLYTES eGFR 77 mL/min/1.73m2 08/13/2014 1Result Comment: The eGFR is calculated using [...] from the National Kidney Disease Education Program (NKDEP) which additionally recommends that when the eGFR is used in patients with extremes of body mass index for purposes of drug dosing, the eGFR should be multiplied by the estimated BMI. [facility] ELECTROLYTES Creatinine Lvl 1.0 mg/dL 0.5 - 1.4 08/13/2014 [facility] ELECTROLYTES BUN 8 mg/dL 7 - 22 08/13/2014 [facility] ELECTROLYTES Glucose Lvl 123 mg/dL 70 - 99 08/13/2014 2Interpretive Data: Adult reference range values reflect the clinical guidelines of the [place] [employer]. [facility] ELECTROLYTES CO2 28 meq/L 24 - 32 08/13/2014 [facility] ELECTROLYTES Calcium Lvl 8.7 mg/dL 8.5 - 10.5 08/13/2014 [facility] ELECTROLYTES AGAP 9.8 meq/L 10.0 - 20.0 08/13/2014 [facility] HEMATOLOGY MPV 9.3 fL 7.4 - 10.4 08/13/2014 [facility] HEMATOLOGY Platelet 224 K/CMM 133 - 450 08/13/2014 [facility] HEMATOLOGY Hct 42.4 % 42.0 - 54.0 08/13/2014 [facility] HEMATOLOGY MCV 92.6 fL 80.0 - 94.0 08/13/2014 [facility] MCH 32.3 pg 27.0 - 31.0 08/13/2014 [facility] MCHC 34.9 g/dL 32.0 - 36.0 08/13/2014 [facility] RDW 13.9 % 11.5 - 14.5 08/13/2014 [facility] RBC 4.58 M/CMM 4.70 - 6.10 08/13/2014 [facility] HEMATOLOGY WBC 10.5 K/CMM 3.7 - 10.4 08/13/2014 [facility] Hgb 14.8 g/dL 14.0 - 18.0 08/13/2014 [facility] Monocytes # 0.5 K/CMM 0.0 - 0.8 08/13/2014 [facility] HEMATOLOGY Lymphocytes # 2.7 K/CMM 1.0 - 5.5 08/13/2014 [facility] HEMATOLOGY Eosinophils # 0.1 K/CMM 0.0 - 0.5 08/13/2014 [facility] HEMATOLOGY Basophils # 0.1 K/CMM 0.0 - 0.2 08/13/2014 [facility] HEMATOLOGY Eosinophils 1.4 % 0.0 - 4.0 08/13/2014 [facility] HEMATOLOGY Segs-Bands # 7.1 K/CMM 1.5 - 8.1 08/13/2014 [facility] HEMATOLOGY Basophils 1.4 % 0.0 - 1.0 08/13/2014 [facility] HEMATOLOGY Segs 67.0 % 45.0 - 75.0 08/13/2014 [facility] HEMATOLOGY Lymphocytes 25.7 % 20.0 - 40.0 08/13/2014 [facility] HEMATOLOGY Monocytes 4.5 % 2.0 - 12.0 08/13/2014 [facility] URINE AND STOOL UA WBC null 0 - 5 08/13/2014 [facility] URINE AND STOOL UA RBC 3 /HPF 0 - 2 08/13/2014 [facility] URINE AND STOOL UA Leuk Est Negative (08/13/14 11:22 AM) Negative 08/13/2014 [facility] URINE AND STOOL UA Spec Grav 1.013 <=1.030 08/13/2014 [facility] URINE AND STOOL UA pH 5.0 5.0 - 8.0 08/13/2014 [facility] URINE AND STOOL UA Protein Negative mg/dL Negative mg/dL 08/13/2014 [facility] URINE AND STOOL UA Glucose Negative mg/dL Negative mg/dL 08/13/2014 [facility] URINE AND STOOL UA Ketones Negative mg/dL Negative mg/dL 08/13/2014 [facility] URINE AND STOOL UA Bili Negative *NA* (08/13/14 11:22 AM) Negative 08/13/2014 [facility] URINE AND STOOL UA Blood Small *ABN* (08/13/14 11:22 AM) Negative 08/13/2014 [facility] URINE AND STOOL UA Urobilinogen 2.0 mg/dL 0.1 - 1.0 08/13/2014 [facility] URINE AND STOOL UA Nitrite Negative (08/13/14 11:22 AM) Negative 08/13/2014 [facility] URINE AND STOOL UA Sq Epi None Seen 08/13/2014 [facility] URINE AND STOOL UA Turbidity Clear (08/13/14 11:22 AM) Clear 08/13/2014 [facility] URINE AND STOOL UA Color Yellow *NA* (08/13/14 11:22 AM) Yellow 08/13/2014 [facility] CHEMISTRY AGAP 9.6 meq/L 10.0 - 20.0 10/16/2011 LOW [facility] CHEMISTRY Calcium Lvl 8.5 mg/dL 8.5 - 10.5 10/16/2011 Normal [facility] CHEMISTRY Chloride Lvl 110 meq/L 95 - 109 10/16/2011 HI [facility] CHEMISTRY Sodium Lvl 140 meq/L 135 - 145 10/16/2011 Normal [facility] CHEMISTRY CO2 25 meq/L 24 - 32 10/16/2011 Normal [facility] CHEMISTRY Potassium Lvl 4.6 meq/L 3.5 - 5.1 10/16/2011 Normal [facility] CHEMISTRY Creatinine Lvl 1.0 mg/dL 0.5 - 1.4 10/16/2011 Normal [facility] CHEMISTRY BUN 17 mg/dL 7 - 22 10/16/2011 Normal [facility] CHEMISTRY Glucose Lvl 105 mg/dL 70 - 99 10/16/2011 HI 1Interpretive Data: Adult reference range values reflect the clinical guidelines of the [place] [employer]. [facility] HEMATOLOGY PT 13.0 s 12.0 - 14.7 10/16/2011 Normal [facility] HEMATOLOGY INR 0.98 0.85 - 1.17 10/16/2011 Normal 2Interpretive Data: RECOMMENDED RANGES FOR PROTIME INR: 2.0-3.0 for most medical and surgical thromboembolic states. 2.5-3.5 for artificial heart valves and recurrent embolism. INR SHOULD BE USED ONLY FOR PATIENTS ON STABLE ANTICOAGULANT THERAPY. [facility] HEMATOLOGY PTT 37.0 s 22.9 - 35.8 10/16/2011 ID 3Interpretive Data: Heparin Therapeutic Range: 57 - 92 Seconds [facility] HEMATOLOGY Hgb 16.2 g/dL 14.0 - 18.0 10/16/2011 Normal [facility] Hct 48.3 % 42.0 - 54.0 10/16/2011 Normal [facility] RBC 5.18 M/CMM 4.70 - 6.10 10/16/2011 Normal [facility] WBC 13.7 K/CMM 3.7 - 10.4 10/16/2011 [facility] RDW 13.5 % 11.5 - 14.5 10/16/2011 Normal [facility] MCV 93.4 fL 80.0 - 94.0 10/16/2011 Normal [facility] MCH 31.3 pg 27.0 - 31.0 10/16/2011 [facility] MCHC 33.5 g/dL 32.0 - 36.0 10/16/2011 Normal [facility] MPV 9.1 fL 7.4 - 10.4 10/16/2011 Normal [facility] Platelet 257 K/CMM 133 - 450 10/16/2011 Normal [facility] Lymphocytes # 3.5 K/CMM 1.0 - 5.5 10/16/2011 Normal [facility] HEMATOLOGY Monocytes # 0.9 K/CMM 0.0 - 0.8 10/16/2011 [facility] HEMATOLOGY Basophils # 0.1 K/CMM 0.0 - 0.2 10/16/2011 Normal [facility] HEMATOLOGY Eosinophils # 0.5 K/CMM 0.0 - 0.5 10/16/2011 Normal [facility] HEMATOLOGY Segs-Bands # 8.8 K/CMM 1.5 - 8.1 10/16/2011 [facility] HEMATOLOGY Monocytes 6.3 % 2.0 - 12.0 10/16/2011 Normal [facility] HEMATOLOGY Lymphocytes 25.7 % 20.0 - 40.0 10/16/2011 Normal [facility] HEMATOLOGY Segs 64.0 % 45.0 - 75.0 10/16/2011 Normal [facility] HEMATOLOGY Eosinophils 3.4 % 0.0 - 4.0 10/16/2011 Normal [facility] HEMATOLOGY Basophils 0.6 % 0.0 - 1.0 10/16/2011 Normal [facility] CHEMISTRY AGAP 10.7 meq/L 10.0 - 20.0 01/14/2011 Normal [facility] CHEMISTRY Glucose Lvl 110.0 mg/dL 01/14/2011 NA 1Interpretive Data: Reference Ranges : 0 - 7 days : 41 - 90 mg/dL7 days - 150 yrs : 70 - 99 mg/dL (fasting), based on the clinical recommendations of the [place] [employer]. [facility] CHEMISTRY BUN 15.0 mg/dL 7 - 22 01/14/2011 Normal [facility] CHEMISTRY Sodium Lvl 139.0 meq/L 135 - 145 01/14/2011 Normal [facility] CHEMISTRY Creatinine Lvl 1.0 mg/dL 0.5 - 1.4 01/14/2011 Normal [facility] CHEMISTRY Potassium Lvl 4.7 meq/L 3.5 - 5.1 01/14/2011 Normal [facility] CHEMISTRY Chloride Lvl 108.0 meq/L 95 - 109 01/14/2011 Normal [facility] CHEMISTRY Calcium Lvl 9.1 mg/dL 8.5 - 10.5 01/14/2011 Normal [facility] CHEMISTRY CO2 25.0 meq/L 24 - 32 01/14/2011 Normal [facility] HEMATOLOGY PTT 38.3 s 22.9 - 35.8 01/14/2011 HI 3Interpretive Data: Heparin Therapeutic Range: 57 - 92 Seconds [facility] HEMATOLOGY INR 0.98 0.85 - 1.17 01/14/2011 Normal 2Interpretive Data: RECOMMENDED RANGES FOR PROTIME INR: 2.0-3.0 for most medical and surgical thromboembolic states. 2.5-3.5 for artificial heart valves and recurrent embolism.INR SHOULD BE USED ONLY FOR PATIENTS ON STABLE ANTICOAGULANT THERAPY. [facility] HEMATOLOGY PT 13.0 s 12.0 - 14.7 01/14/2011 Normal [facility] HEMATOLOGY RBC 4.62 M/CMM 4.70 - 6.10 01/14/2011 LOW [facility] HEMATOLOGY Hgb 14.8 g/dL 14.0 - 18.0 01/14/2011 Normal [facility] HEMATOLOGY MCV 92.4 fL 80.0 - 94.0 01/14/2011 Normal [facility] HEMATOLOGY Hct 42.7 % 42.0 - 54.0 01/14/2011 Normal [facility] HEMATOLOGY MCHC 34.7 g/dL 32.0 - 36.0 01/14/2011 Normal [facility] HEMATOLOGY RDW 13.6 % 11.5 - 14.5 01/14/2011 Normal [facility] HEMATOLOGY MCH 32.0 pg 27.0 - 31.0 01/14/2011 HI [facility] HEMATOLOGY Platelet 256.0 K/CMM 133 - 450 01/14/2011 Normal [facility] HEMATOLOGY MPV 9.8 fL 7.4 - 10.4 01/14/2011 Normal [facility] HEMATOLOGY WBC 12.0 K/CMM 3.7 - 10.4 01/14/2011 HI [facility] HEMATOLOGY Eosinophils 2.7 % 0.0 - 4.0 01/14/2011 Normal [facility] HEMATOLOGY Basophils 0.4 % 0.0 - 1.0 01/14/2011 Normal [facility] HEMATOLOGY Segs-Bands # 7.4 K/CMM 1.5 - 8.1 01/14/2011 Normal [facility] HEMATOLOGY Lymphocytes # 3.6 K/CMM 1.0 - 5.5 01/14/2011 Normal [facility] HEMATOLOGY Eosinophils # 0.3 K/CMM 0.0 - 0.5 01/14/2011 Normal [facility] HEMATOLOGY Monocytes # 0.6 K/CMM 0.0 - 0.8 01/14/2011 Normal [facility] HEMATOLOGY Basophils # 0.0 K/CMM 0.0 - 0.2 01/14/2011 Normal [facility] HEMATOLOGY Lymphocytes 30.3 % 20.0 - 40.0 01/14/2011 Normal [facility] HEMATOLOGY Segs 61.7 % 45.0 - 75.0 01/14/2011 Normal [facility] HEMATOLOGY Monocytes 4.9 % 2.0 - 12.0 01/14/2011 Normal [facility] Vital Signs Vital Sign Value Date Comments Source Systolic (mm Hg) 123 12/14/2015 [facility] Diastolic (mm Hg) 71 12/14/2015 [facility] Respitory Rate 18 12/14/2015 [facility] Heart Rate 58 12/14/2015 [facility] Temperature Oral (F) 97.8 F 12/14/2015 [facility] BMI Calculated 27.43 12/14/2015 [facility] Weight 81.818 12/14/2015 [facility] Respitory Rate 16 12/14/2015 [facility] Systolic (mm Hg) 114 12/14/2015 [facility] Diastolic (mm Hg) 66 12/14/2015 [facility] Heart Rate 64 12/14/2015 [facility] Temperature Oral (F) 97.6 F 12/14/2015 [facility] Height 172.72 cm 12/14/2015 [facility] Respitory Rate 18 06/18/2015 [facility] Heart Rate 66 06/18/2015 [facility] Temperature Oral (F) 97.5 F 06/18/2015 [facility] Systolic (mm Hg) 157 06/18/2015 [facility] Diastolic (mm Hg) 83 06/18/2015 [facility] Systolic (mm Hg) 154 06/18/2015 [facility] Diastolic (mm Hg) 86 06/18/2015 [facility] Respitory Rate 18 06/18/2015 [facility] Heart Rate 75 06/18/2015 [facility] Temperature Oral (F) 98 F 06/18/2015 [facility] Heart Rate 68 06/18/2015 [facility] Temperature Oral (F) 98 F 06/18/2015 [facility] Respitory Rate 18 06/18/2015 [facility] Systolic (mm Hg) 165 06/18/2015 [facility] Diastolic (mm Hg) 78 06/18/2015 [facility] BMI Calculated 28.09 06/17/2015 [facility] Height 170.18 cm 06/17/2015 [facility] Weight 81.364 06/17/2015 [facility] Systolic (mm Hg) 183 08/20/2014 [facility] Diastolic (mm Hg) 82 08/20/2014 [facility] Systolic (mm Hg) 186 08/20/2014 [facility] Diastolic (mm Hg) 85 08/20/2014 [facility] Systolic (mm Hg) 191 08/20/2014 [facility] Diastolic (mm Hg) 96 08/20/2014 [facility] Respitory Rate 13 08/20/2014 [facility] Respitory Rate 12 08/20/2014 [facility] Respitory Rate 10 08/20/2014 [facility] Heart Rate 57 08/20/2014 [facility] Height 170.18 cm 08/13/2014 [facility] Weight 80 08/13/2014 [facility] BMI Calculated 27.62 08/13/2014 [facility] Heart Rate 61 08/13/2014 [facility] Temperature Oral (F) 98.2 F 08/13/2014 [facility] Temperature Oral (F) 98.2 F 10/16/2011 [facility] Respitory Rate 18 10/16/2011 [facility] Systolic (mm Hg) 147 10/16/2011 [facility] Diastolic (mm Hg) 78 10/16/2011 [facility] Heart Rate 60 10/16/2011 [facility] Height 170.18 cm 10/16/2011 [facility] Weight 81.818 10/16/2011 [facility] Weight 79.545 09/23/2011 [facility] Height 170.18 cm 09/23/2011 [facility] Heart Rate 64.0 01/14/2011 [facility] Systolic (mm Hg) 147.0 01/14/2011 [facility] Respitory Rate 18.0 01/14/2011 [facility] Temperature Oral (F) 98.5 F 01/14/2011 [facility] Diastolic (mm Hg) 79.0 01/14/2011 [facility] Weight 84.091 01/14/2011 [facility] Height 170.18 cm 01/14/2011 [facility] Encounters Location Location Details Encounter Type Encounter Number Reason For Visit Attending Provider ADM Date DC Date Status Source [facility] MINDY [id number] PVD SARAH BRYAN 12/18/2010 12/18/2010 Active [facility] MINDY [id number] SARAH BRYAN 01/15/2011 01/15/2011 Active [facility] Outpatient [id number] BLE DX:[id number] SARAH BRYAN 09/23/2011 Active [facility] MINDY [id number] SARAH BRYAN 10/19/2011 10/19/2011 Active [facility] OBS Day Surgery [id number] Kobi Montse 08/17/2014 08/20/2014 [facility] OBS Observation Patient [id number] Adnan Nick 06/17/2015 06/18/2015 [facility] Outpatient [id number] Adnan Nick 06/25/2015 06/26/2015 [facility] Medical [place] OP Therapy Patients [id number] Adnan Nick 11/13/2015 12/13/2015 [facility] Emergency [id number] Ulises Mart 12/14/2015 12/14/2015 [facility] Outpatient [id number] Foster Powersr 04/15/2017 04/16/2017 [facility] Outpatient [id number] Foster Araujo 04/19/2017 04/20/2017 [facility] Preadmit [id number] UNK SARAH Maldonado [facility] Procedures Procedure Code Date Perfomer Comments Source Bypass [id number] [facility] Bypass [id number] [facility]
--- OUTSIDE RECORDS SUMMARY | 2018-04-01 10:44 | XMS REPORT | CCD ---
Author Author Auto Generated Organization [facility] Address Unknown Phone Unavailable Care Team Providers Care Sewage Plant Operator Name Role Phone Vazquez Kaur RP Allergies, Adverse Reactions, Alerts Substance Reaction Status NKDA Active Vital Signs Most recent to oldest [Reference Range]: 1 Height 170.18 cm (09/23/2011 08:19:00) Weight 79.545 kg (09/23/2011 08:19:00)
--- OUTSIDE RECORDS SUMMARY | 2018-04-01 10:44 | XMS REPORT | CCD ---
Author Author Auto Generated Organization [facility] Address Unknown Phone Unavailable Care Team Providers Care Port Surveyor Name Role Phone Rosana Faulkner CP [phone] ChartServer, Login CP Unavailable Olga Caballero Diogenes CP [phone] Clemencia Ramirez CP Unavailable Estela Peña CP [phone] Azeb Gregory CP [phone] SYSTEM, SYSTEM CP Unavailable VincentVazquez Mor RP Allergies, Adverse Reactions, Alerts Substance Reaction Status NKDA ?? Active Vital Signs Most recent to oldest [Reference Range]: 1 Height 170.18 cm (01/14/2011 12:13:00) ?? Temperature Oral [96.4-99.1 DegF] 98.5 DegF (01/14/2011 12:23:00) ?? Systolic Blood Pressure [90-140 mmHg] 147 mmHg *HI* (01/14/2011 12:23:00) ?? Diastolic Blood Pressure [60-90 mmHg] 79 mmHg (01/14/2011 12:23:00) ?? Respiratory Rate [14-20 BRMIN] 18 BRMIN (01/14/2011 12:23:00) ?? Peripheral Pulse Rate [60-100 bpm] 64 bpm (01/14/2011 12:23:00) ?? Weight 84.091 kg (01/14/2011 12:13:00) ?? Results CHEMISTRY Most recent to oldest [Reference Range]: 1 Sodium Lvl [135-145 mEq/L] 139 mEq/L (01/14/2011 12:50:00) ?? Potassium Lvl [3.5-5.1 mEq/L] 4.7 mEq/L (01/14/2011 12:50:00) ?? Chloride Lvl [95-109 mEq/L] 108 mEq/L (01/14/2011 12:50:00) ?? CO2 [24-32 mEq/L] 25 mEq/L (01/14/2011 12:50:00) ?? AGAP [10.0-20.0 mEq/L] 10.7 mEq/L (01/14/2011 12:50:00) ?? Creatinine Lvl [0.5-1.4 mg/dL] 1.0 mg/dL (01/14/2011 12:50:00) ?? BUN [7-22 mg/dL] 15 mg/dL (01/14/2011 12:50:00) ?? Glucose Lvl 110 mg/dL 1 *NA* (01/14/2011 12:50:00) ?? Calcium Lvl [8.5-10.5 mg/dL] 9.1 mg/dL (01/14/2011 12:50:00) ?? 1Interpretive Data: Reference Ranges : 0 - 7 days : 41 - 90 mg/dL7 days - 150 yrs : 70 - 99 mg/dL (fasting), based on the clinical recommendations of the [place] [employer]. HEMATOLOGY Most recent to oldest [Reference Range]: 1 WBC [3.7-10.4 K/CMM] 12.0 K/CMM *HI* (01/14/2011 12:50:00) ?? RBC [4.70-6.10 M/CMM] 4.62 M/CMM *LOW* (01/14/2011 12:50:00) ?? Hgb [14.0-18.0 g/dL] 14.8 g/dL (01/14/2011 12:50:00) ?? Hct [42.0-54.0 %] 42.7 % (01/14/2011 12:50:00) ?? MCV [80.0-94.0 fL] 92.4 fL (01/14/2011 12:50:00) ?? MCH [27.0-31.0 pg] 32.0 pg *HI* (01/14/2011 12:50:00) ?? MCHC [32.0-36.0 g/dL] 34.7 g/dL (01/14/2011 12:50:00) ?? RDW [11.5-14.5 %] 13.6 % (01/14/2011 12:50:00) ?? Platelet [133-450 K/CMM] 256 K/CMM (01/14/2011 12:50:00) ?? MPV [7.4-10.4 fL] 9.8 fL (01/14/2011 12:50:00) ?? Segs [45.0-75.0 %] 61.7 % (01/14/2011 12:50:00) ?? Lymphocytes [20.0-40.0 %] 30.3 % (01/14/2011 12:50:00) ?? Monocytes [2.0-12.0 %] 4.9 % (01/14/2011 12:50:00) ?? Eosinophils [0.0-4.0 %] 2.7 % (01/14/2011 12:50:00) ?? Basophils [0.0-1.0 %] 0.4 % (01/14/2011 12:50:00) ?? Segs-Bands # [1.5-8.1 K/CMM] 7.4 K/CMM (01/14/2011 12:50:00) ?? Lymphocytes # [1.0-5.5 K/CMM] 3.6 K/CMM (01/14/2011 12:50:00) ?? Monocytes # [0.0-0.8 K/CMM] 0.6 K/CMM (01/14/2011 12:50:00) ?? Eosinophils # [0.0-0.5 K/CMM] 0.3 K/CMM (01/14/2011 12:50:00) ?? Basophils # [0.0-0.2 K/CMM] 0.0 K/CMM (01/14/2011 12:50:00) ?? PT [12.0-14.7 seconds] 13.0 seconds (01/14/2011 12:50:00) ?? INR [0.85-1.17] 0.98 2 (01/14/2011 12:50:00) ?? PTT [22.9-35.8 seconds] 38.3 seconds 3 *HI* (01/14/2011 12:50:00) ?? 2Interpretive Data: RECOMMENDED RANGES FOR PROTIME INR: 2.0-3.0 for most medical and surgical thromboembolic states. 2.5-3.5 for artificial heart valves and recurrent embolism.INR SHOULD BE USED ONLY FOR PATIENTS ON STABLE ANTICOAGULANT THERAPY. 3Interpretive Data: Heparin Therapeutic Range: 57 - 92 Seconds
--- OUTSIDE RECORDS SUMMARY | 2018-04-01 10:44 | XMS REPORT | CCD ---
Author Author Auto Generated Organization [facility] Address Unknown Phone Unavailable Care Team Providers Care Environmental Health And Safety Leader Name Role Phone ChartServer, Login CP Unavailable Azeb Gregory CP [phone] Allergies, Adverse Reactions, Alerts Substance Reaction Status NKDA ?? Active
--- OUTSIDE RECORDS SUMMARY | 2018-04-01 10:44 | XMS REPORT | Summary of Care ---
Author Author [facility] Organization [facility] Address Unknown Phone Unavailable Encounter NILTON Giles(JOHN) [id number] Date(s): 06/25/15 - 06/25/15 [facility] [address] [place] [address]- Discharge Disposition: Home Attending Physician: Breanna Romero MD Referring Physician: Breanna Romero MD Vital Signs No data available for this section Problem List Condition Effective Dates Status Health Status Informant Blind Active eye(Confirmed)1 Cholesterol(Confirme Active d) Hypertension(Confirm Active ed) Poor peripheral Active circulation(Confirme d) Prostate Active cancer(Confirmed) PVD - Peripheral Active vascular disease(Confirmed) Smoker(Confirmed) Active Stroke(Confirmed)2 Resolved 1left 2no s/s Allergies, Adverse Reactions, Alerts Substance Reaction Severity Status NKDA Active Medications No data available for this section Results No data available for this section Immunizations No data available for this section Procedures Procedure Date Related Diagnosis Body Site Bypass Social History Social History Type Response Alcohol Current, Type Beer. Smoking Status Current some day smoker; Type: Cigarettes; Tobacco use per day: 10; Number of years: 50; Exposure to Tobacco Smoke None; Cigarette Smoking Last 365 Days Yes; Reg Smoking Cessation Counseling Yes Assessment and Plan No data available for this section
--- OUTSIDE RECORDS SUMMARY | 2018-04-01 10:44 | XMS REPORT | CCD ---
Author Author Auto Generated Organization [facility] Address Unknown Phone Unavailable Care Team Providers Care Cancellation Clerk Name Role Phone Vazquez Kaur RP Allergies, Adverse Reactions, Alerts Substance Reaction Status NKDA Active Medications Medication Instructions Start Date End Date Status cefazolin 2 gm, 100 mL, Route: IVPB, Drug 10/16/2011 10/19/2011 Discontinued form: INJ, ONCALL, Start date: 10/16/11 10:00:00, Duration: 1 doses or times Vital Signs Most recent to oldest [Reference Range]: 1 Height 170.18 cm (10/16/2011 09:02:00) Temperature Oral [96.4-99.1 DegF] 98.2 DegF (10/16/2011 09:45:00) Systolic Blood Pressure [90-140 mmHg] 147 mmHg *HI* (10/16/2011 09:45:00) Diastolic Blood Pressure [60-90 mmHg] 78 mmHg (10/16/2011 09:45:00) Respiratory Rate [14-20 BRMIN] 18 BRMIN (10/16/2011 09:45:00) Peripheral Pulse Rate [60-100 bpm] 60 bpm (10/16/2011 09:45:00) Weight 81.818 kg (10/16/2011 09:02:00) Results CHEMISTRY Most recent to oldest [Reference Range]: 1 Sodium Lvl [135-145 mEq/L] 140 mEq/L (10/16/2011 10:00:00) Potassium Lvl [3.5-5.1 mEq/L] 4.6 mEq/L (10/16/2011 10:00:00) Chloride Lvl [95-109 mEq/L] 110 mEq/L *HI* (10/16/2011 10:00:00) CO2 [24-32 mEq/L] 25 mEq/L (10/16/2011 10:00:00) AGAP [10.0-20.0 mEq/L] 9.6 mEq/L *LOW* (10/16/2011 10:00:00) Creatinine Lvl [0.5-1.4 mg/dL] 1.0 mg/dL (10/16/2011 10:00:00) BUN [7-22 mg/dL] 17 mg/dL (10/16/2011 10:00:00) Glucose Lvl [70-99 mg/dL] 105 mg/dL 1 *HI* (10/16/2011 10:00:00) Calcium Lvl [8.5-10.5 mg/dL] 8.5 mg/dL (10/16/2011 10:00:00) 1Interpretive Data: Adult reference range values reflect the clinical guidelines of the [place] [employer]. HEMATOLOGY Most recent to oldest [Reference Range]: 1 WBC [3.7-10.4 K/CMM] 13.7 K/CMM *HI* (10/16/2011 10:00:00) RBC [4.70-6.10 M/CMM] 5.18 M/CMM (10/16/2011 10:00:00) Hgb [14.0-18.0 g/dL] 16.2 g/dL (10/16/2011 10:00:00) Hct [42.0-54.0 %] 48.3 % (10/16/2011 10:00:00) MCV [80.0-94.0 fL] 93.4 fL (10/16/2011 10:00:00) MCH [27.0-31.0 pg] 31.3 pg *HI* (10/16/2011 10:00:00) MCHC [32.0-36.0 g/dL] 33.5 g/dL (10/16/2011 10:00:00) RDW [11.5-14.5 %] 13.5 % (10/16/2011 10:00:00) Platelet [133-450 K/CMM] 257 K/CMM (10/16/2011 10:00:00) MPV [7.4-10.4 fL] 9.1 fL (10/16/2011 10:00:00) Segs [45.0-75.0 %] 64.0 % (10/16/2011 10:00:00) Lymphocytes [20.0-40.0 %] 25.7 % (10/16/2011 10:00:00) Monocytes [2.0-12.0 %] 6.3 % (10/16/2011 10:00:00) Eosinophils [0.0-4.0 %] 3.4 % (10/16/2011 10:00:00) Basophils [0.0-1.0 %] 0.6 % (10/16/2011 10:00:00) Segs-Bands # [1.5-8.1 K/CMM] 8.8 K/CMM *HI* (10/16/2011 10:00:00) Lymphocytes # [1.0-5.5 K/CMM] 3.5 K/CMM (10/16/2011 10:00:00) Monocytes # [0.0-0.8 K/CMM] 0.9 K/CMM *HI* (10/16/2011 10:00:00) Eosinophils # [0.0-0.5 K/CMM] 0.5 K/CMM (10/16/2011 10:00:00) Basophils # [0.0-0.2 K/CMM] 0.1 K/CMM (10/16/2011 10:00:00) PT [12.0-14.7 seconds] 13.0 seconds (10/16/2011 10:00:00) INR [0.85-1.17] 0.98 2 (10/16/2011 10:00:00) PTT [22.9-35.8 seconds] 37.0 seconds 3 *HI* (10/16/2011 10:00:00) 2Interpretive Data: RECOMMENDED RANGES FOR PROTIME INR: 2.0-3.0 for most medical and surgical thromboembolic states. 2.5-3.5 for artificial heart valves and recurrent embolism. INR SHOULD BE USED ONLY FOR PATIENTS ON STABLE ANTICOAGULANT THERAPY. 3Interpretive Data: Heparin Therapeutic Range: 57 - 92 Seconds
--- OUTSIDE RECORDS SUMMARY | 2018-04-01 10:45 | XMS REPORT | Summary of Care ---
Author Author [facility] Organization [facility] Address Unknown Phone Unavailable Encounter NILTON Giles(FIN) [id number] Date(s): 06/17/15 - 06/18/15 [facility] [address] [place] [address]- Discharge Disposition: Home Attending Physician: Breanna Romero MD Admitting Physician: Breanna Romero MD Vital Signs 1 2 3 Most recent to oldest [Reference Range]: 170.18 cm (06/17/15 4:58 PM) Height 97.5 DegF (06/18/15 7:09 AM) 98 DegF (06/18/15 4:02 AM) 98 DegF (06/18/15 12:40 AM) Temperature Oral [96.4-99.1 DegF] 157/83 mmHg *HI* (06/18/15 7:09 AM) 154/86 mmHg *HI* (06/18/15 4:02 AM) 165/78 mmHg *HI* (06/18/15 12:40 AM) Blood Pressure [90-140/60-90 mmHg] 18 BRMIN (06/18/15 7:09 AM) 18 BRMIN (06/18/15 4:02 AM) 18 BRMIN (06/18/15 12:40 AM) Respiratory Rate [14-20 BRMIN] 66 bpm (06/18/15 7:09 AM) 75 bpm (06/18/15 4:02 AM) 68 bpm (06/18/15 12:40 AM) Peripheral Pulse Rate [60-100 bpm] 81.364 kg (06/17/15 4:58 PM) Weight 28.09 m2 (06/17/15 4:58 PM) Body Mass Index Problem List Condition Effective Dates Status Health Status Informant Blind Active eye(Confirmed)1 Cholesterol(Confirme Active d) Hypertension(Confirm Active ed) Poor peripheral Active circulation(Confirme d) Prostate Active cancer(Confirmed) PVD - Peripheral Active vascular disease(Confirmed) Smoker(Confirmed) Active Stroke(Confirmed)2 Resolved 1left 2no s/s Allergies, Adverse Reactions, Alerts Substance Reaction Severity Status NKDA Active Medications acetaminophen 650 mg, 2 tab, Route: PO, Drug form: TAB, Q4H, Dosing Weight 81.364, kg, PRN Cinthia n 1-3/Temp > 100.4 F, Start date: 06/17/15 17:07:00, Duration: 30 day, Stop date: 07/17/15 17:06:00 Notes: Do not exceed 4 gm/day. (Same as: Tylenol) Start Date: 06/17/15 Stop Date: 06/18/15 Status: Discontinued aspirin 81 mg tablet, enteric coated 81 mg, 1 tab, Route: PO, Drug form: ECTAB, ONCE, Dosing Weight 80, kg, Start luz e: 06/17/15 16:19:00, Stop date: 06/17/15 16:19:00 Notes: Do not crush or chew.(Same As: Ecotrin) Start Date: 06/17/15 Stop Date: 06/17/15 Status: Completed aspirin 81 mg tablet, enteric coated 81 mg, 1 tab, Route: PO, Drug form: ECTAB, Daily, Dosing Weight 81.364, kg, Star t date: 06/18/15 10:30:00, Duration: 30 day, Stop date: 07/18/15 9:00:00 Notes: Do not crush or chew.(Same As: Ecotrin) Start Date: 06/18/15 Stop Date: 06/18/15 Status: Discontinued aspirin 81 mg tablet, enteric coated 81 mg=1 tab, PO, Daily, # 90 tab, 0 Refill(s) Start Date: 06/18/15 Status: Ordered clopidogrel 75 mg oral tablet 75 mg=1 tab, PO, Daily, # 90 tab, 0 Refill(s) Start Date: 06/18/15 Status: Ordered Lipitor 20 mg, 2 tab, Route: PO, Drug form: TAB, Bedtime, Dosing Weight 81.364, kg, Star t date: 06/18/15 21:00:00, Duration: 30 day, Stop date: 07/17/15 21:00:00 Notes: (Same As: Lipitor) Start Date: 06/18/15 Stop Date: 06/18/15 Status: Canceled Lipitor 10 mg oral tablet 10 mg=1 tab, PO, Bedtime, # 30 tab, 0 Refill(s) Start Date: 06/18/15 Status: Ordered Norvasc 5 mg oral tablet 5 mg=1 tab, PO, Daily, # 30 tab, 1 Refill(s) Start Date: 06/18/15 Status: Ordered ondansetron 4 mg, 2 mL, Route: IVP, Drug form: INJ, Q6H, Dosing Weight 81.364, kg, PRN Nause a & Vomiting, Start date: 06/17/15 17:07:00, Duration: 30 day, Stop date: 07/17/15 17:06:00 Notes: (Same as: Zofran) MEDICATION WASTE Product Size: 4 mgProduct Was raquel: ___ mg Start Date: 06/17/15 Stop Date: 06/18/15 Status: Discontinued Plavix 75 mg, 1 tab, Route: PO, Drug form: TAB, Daily, Dosing Weight 81.364, kg, Start date: 06/18/15 10:30:00, Duration: 30 day, Stop date: 07/18/15 9:00:00 Notes: (Same As: Plavix) Start Date: 06/18/15 Stop Date: 06/18/15 Status: Discontinued Results ELECTROLYTES Most recent to 1 oldest [Reference Range]: Sodium Lvl [135-145 140 mEq/L mEq/L] (06/17/15 5:44 PM) Potassium Lvl 3.9 mEq/L [3.5-5.1 mEq/L] (06/17/15 5:44 PM) Chloride Lvl [95-109 107 mEq/L mEq/L] (06/17/15 5:44 PM) CO2 [24-32 mEq/L] 29 mEq/L (06/17/15 5:44 PM) AGAP [10.0-20.0 7.9 mEq/L mEq/L] *LOW* (06/17/15 5:44 PM) CHEM PANEL Most recent to 1 oldest [Reference Range]: Creatinine Lvl 0.82 mg/dL [0.50-1.40 mg/dL] (06/17/15 5:44 PM) eGFR 90 mL/min/1.73m2 1 *NA* (06/17/15 5:44 PM) BUN [7-22 mg/dL] 12 mg/dL (06/17/15 5:44 PM) B/C Ratio [6-25] 15 (06/17/15 5:44 PM) Glucose Lvl [70-99 89 mg/dL mg/dL] (06/17/15 5:44 PM) Total Protein 6.7 g/dL [6.4-8.4 g/dL] (06/17/15 5:44 PM) Albumin Lvl [3.5-5.0 3.6 g/dL g/dL] (06/17/15 5:44 PM) Globulin [2.0-4.0 3.1 g/dL g/dL] (06/17/15 5:44 PM) A/G Ratio [0.7-1.6] 1.2 (06/17/15 5:44 PM) Calcium Lvl 8.2 mg/dL [8.5-10.5 mg/dL] *LOW* (06/17/15 5:44 PM) ALT [0-65 unit/L] 21 unit/L (06/17/15 5:44 PM) AST [0-37 unit/L] 11 unit/L (06/17/15 5:44 PM) Alk Phos [39-136 101 unit/L unit/L] (06/17/15 5:44 PM) Bili Total [0.2-1.3 0.6 mg/dL mg/dL] (06/17/15 5:44 PM) 1Result Comment: The eGFR is calculated using [...] be mul tiplied by the estimated BMI. LIPIDS Most recent to 1 oldest [Reference Range]: CHD Risk [4.00-7.30] 3.25 *LOW* (06/17/15 5:44 PM) Chol [<=199 mg/dL] 198 mg/dL (06/17/15 5:44 PM) Trig [<=149 mg/dL] 153 mg/dL *HI* (06/17/15 5:44 PM) HDL [>=61 mg/dL] 61 mg/dL (06/17/15 5:44 PM) LDL (Calculated) 106 mg/dL [<=99 mg/dL] *HI* (06/17/15 5:44 PM) VLDL 31 *NA* (06/17/15 5:44 PM) HEMATOLOGY Most recent to 1 oldest [Reference Range]: WBC [3.7-10.4 K/CMM] 10.2 K/CMM (06/17/15 5:44 PM) RBC [4.70-6.10 4.80 M/CMM M/CMM] (06/17/15 5:44 PM) Hgb [14.0-18.0 g/dL] 14.8 g/dL (06/17/15 5:44 PM) Hct [42.0-54.0 %] 43.7 % (06/17/15 5:44 PM) MCV [80.0-94.0 fL] 91.1 fL (06/17/15 5:44 PM) MCH [27.0-31.0 pg] 30.7 pg (06/17/15 5:44 PM) MCHC [32.0-36.0 33.8 g/dL g/dL] (06/17/15 5:44 PM) RDW [11.5-14.5 %] 13.0 % (06/17/15 5:44 PM) Platelet [133-450 220 K/CMM K/CMM] (06/17/15 5:44 PM) MPV [7.4-10.4 fL] 9.1 fL (06/17/15 5:44 PM) Segs [45.0-75.0 %] 74.6 % (06/17/15 5:44 PM) Lymphocytes 16.9 % [20.0-40.0 %] *LOW* (06/17/15 5:44 PM) Monocytes [2.0-12.0 6.6 % %] (06/17/15 5:44 PM) Eosinophils [0.0-4.0 1.4 % %] (06/17/15 5:44 PM) Basophils [0.0-1.0 0.5 % %] (06/17/15 5:44 PM) Segs-Bands # 7.6 K/CMM [1.5-8.1 K/CMM] (06/17/15 5:44 PM) Lymphocytes # 1.7 K/CMM [1.0-5.5 K/CMM] (06/17/15 5:44 PM) Monocytes # [0.0-0.8 0.7 K/CMM K/CMM] (06/17/15 5:44 PM) Eosinophils # 0.1 K/CMM [0.0-0.5 K/CMM] (06/17/15 5:44 PM) Basophils # [0.0-0.2 0.1 K/CMM K/CMM] (06/17/15 5:44 PM) Immunizations No data available for this section [...]
--- OUTSIDE RECORDS SUMMARY | 2018-04-01 10:45 | XMS REPORT | Summary of Care ---
Author Author [facility] Organization [facility] Address Unknown Phone Unavailable Encounter HQ Tisha(JOHN) [id number] Date(s): 04/15/17 - 04/15/17 [facility] [address] [place] [address]- [phone] Encounter Diagnosis Chest pain, unspecified (Final) - 04/20/17 Dyspnea, unspecified (Final) - Centrilobular emphysema (Final) - Atherosclerosis of aorta (Final) - Fatty (change of) liver, not elsewhere classified (Final) - Discharge Disposition: Home or Self Care Attending Physician: Foster Araujo MD Referring Physician: Foster Araujo MD Vital Signs No data available for this section Problem List Condition Effective Dates Status Health Status Informant Blind Active eye(Confirmed)1 Hypertension(Confirm Active ed) Poor peripheral Active circulation(Confirme d) Prostate Active cancer(Confirmed) PVD - Peripheral Active vascular disease(Confirmed) Smoker(Confirmed) Active Stroke(Confirmed)2 Resolved 1left 2no s/s Allergies, Adverse Reactions, Alerts Substance Reaction Severity Status NKDA Active Medications Omnipaque 300 75 mL, Route: IV, Drug Form: SOLN, ONCE, 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 Smoking Status Current some day smoker; Type: Cigarettes; Exposure to Tobacco Smoke None; Cigarette Smoking Last 365 Days Yes; Reg Smoking Cessation Counseling Yes; Tobacco use per day: 10; Number of years: 50; entered on: 12/14/15 Assessment and Plan No data available for this section
--- OUTSIDE RECORDS SUMMARY | 2018-04-01 10:45 | XMS REPORT | Summary of Care ---
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
--- OUTSIDE RECORDS SUMMARY | 2018-04-01 10:45 | XMS REPORT | Summary of Care ---
Author Author [facility] Organization [facility] Address Unknown Phone Unavailable Encounter NILTON Giles(JOHN) [id number] Date(s): 12/14/15 - 12/14/15 [facility] [address] [place] [address]- [phone] Discharge Diagnosis: Dehydration Discharge Diagnosis: Gastroenteritis Discharge Disposition: Home or Self Care Attending Physician: Ulises Mart MD Vital Signs Most recent to 1 2 oldest [Reference Range]: Height 172.72 cm (12/14/15 11:08 AM) Temperature Oral 97.8 DegF 97.6 DegF [96.4-99.1 DegF] (12/14/15 2:37 PM) (12/14/15 11:08 AM) Blood Pressure 123/71 mmHg 114/66 mmHg [90-140/60-90 mmHg] (12/14/15 2:37 PM) (12/14/15 11:08 AM) Respiratory Rate 18 BRMIN 16 BRMIN [14-20 BRMIN] (12/14/15 2:37 PM) (12/14/15 11:08 AM) Peripheral Pulse 58 bpm 64 bpm Rate [60-100 bpm] *LOW* (12/14/15 11:08 AM) (12/14/15 2:37 PM) Weight 81.818 kg (12/14/15 11:08 AM) Body Mass Index 27.43 m2 (12/14/15 11:08 AM) Problem List Condition Effective Dates Status Health Status Informant Blind Active eye(Confirmed)1 Cholesterol(Confirme Active d) Hypertension(Confirm Active ed) Poor peripheral Active circulation(Confirme d) Prostate Active cancer(Confirmed) PVD - Peripheral Active vascular disease(Confirmed) Smoker(Confirmed) Active Stroke(Confirmed)2 Resolved 1left 2no s/s Allergies, Adverse Reactions, Alerts Substance Reaction Severity Status NKDA Active Medications NS (Bolus) IV 500 mL, 500 ml/hr, Infuse Over: 1 hr, Route: IV, ONCE, Priority: STAT, Dosing We ight 81.818 kg, Start date: 12/14/15 11:44:00 CDT, Duration: 1 doses or times, S top date: 12/14/15 11:44:00 CDT Start Date: 12/14/15 Stop Date: 12/14/15 Status: Completed Saline Flush 0.9% 10 mL, Route: IVP, Drug Form: INJ, Dosing Weight 81.818, kg, PRN, PRN Line Flush , Start date: 12/14/15 11:21:00 CDT, Duration: 30 day, Stop date: 01/13/16 11:20 :00 CDT Notes: (Same as: BD Posiflush) Start Date: 12/14/15 Stop Date: 12/14/15 Status: Discontinued Sodium Chloride 0.9% IV (Sodium Chloride 0.9% (Bolus) IV) 500 mL, 2,000 ml/hr, Infuse Over: 15 minutes, Route: IV, ONCE, Priority: STAT, D osing Weight 81.818 kg, Start date: 12/14/15 11:21:00 CDT, Duration: 1 doses or times, Stop date: 12/14/15 11:21:00 CDT Start Date: 12/14/15 Stop Date: 12/14/15 Status: Completed Zofran 4 mg, Route: IVP, Drug form: INJ, ONCE, Dosing Weight 81.818, kg, Priority: STAT , Start date: 12/14/15 11:44:00 CDT, Stop date: 12/14/15 11:44:00 CDT Start Date: 12/14/15 Stop Date: 12/14/15 Status: Completed Zofran 4 mg oral tablet 4 mg=1 tab, PO, BID, X 5 day, # 10 tab, 0 Refill(s) Start Date: 12/14/15 Stop Date: 12/19/15 Status: Ordered Results ELECTROLYTES Most recent to 1 oldest [Reference Range]: Sodium Lvl [135-145 140 mEq/L mEq/L] (12/14/15 12:38 PM) Potassium Lvl 3.5 mEq/L [3.5-5.1 mEq/L] (12/14/15 12:38 PM) Chloride Lvl [95-109 106 mEq/L mEq/L] (12/14/15:38 PM) CO2 [24-32 mEq/L] 25 mEq/L (12/14/15 12:38 PM) AGAP [10.0-20.0 12.5 mEq/L mEq/L] (12/14/15:38 PM) CHEM PANEL Most recent to 1 oldest [Reference Range]: Creatinine Lvl 1.25 mg/dL [0.50-1.40 mg/dL] (12/14/15 12:38 PM) eGFR 58 mL/min/1.73m2 1 *NA* (12/14/15: PM) BUN [7-22 mg/dL] 25 mg/dL *HI* (12/14/15:38 PM) Glucose Lvl [70-99 135 mg/dL mg/dL] *HI* (12/14/15:38 PM) Calcium Lvl 8.0 mg/dL [8.5-10.5 mg/dL] *LOW* (12/14/15:38 PM) Amylase Lvl [25-115 24 unit/L unit/L] *LOW* (12/14/15 12:38 PM) Lipase Lvl [73-393 70 unit/L unit/L] *LOW* (12/14/15 12:38 PM) 1Result Comment: The eGFR is calculated [...] be mul tiplied by the estimated BMI. CARDIAC ENZYMES Most recent to 1 oldest [Reference Range]: Total CK [12-191 79 unit/L unit/L] (12/14/15 12:38 PM) CK MB [0.5-3.6 0.9 ng/mL ng/mL] (12/14/15 12:38 PM) CK MB Index 1.1 [0.0-2.5] (12/14/15 12:38 PM) Troponin-I <0.02 ng/mL [0.00-0.40 ng/mL] (12/14/15 12:38 PM) URINE AND STOOL Most recent to 1 oldest [Reference Range]: UA Turbidity [Clear] Slight *ABN* (12/14/15 1:55 PM) UA Color [Yellow] Yellow *NA* (12/14/15 1:55 PM) UA pH [5.0-8.0] 5.0 (12/14/15 1:55 PM) UA Spec Grav 1.027 [<=1.030] (12/14/15 1:55 PM) UA Glucose [Negative Negative mg/dL mg/dL] *NA* (12/14/15 1:55 PM) UA Blood [Negative] Small *ABN* (12/14/15 1:55 PM) UA Ketones [Negative Negative mg/dL mg/dL] *NA* (12/14/15 1:55 PM) UA Protein [Negative 100 mg/dL mg/dL] *ABN* (12/14/15 1:55 PM) UA Urobilinogen <=1.0 mg/dL [0.1-1.0 mg/dL] *NA* (12/14/15 1:55 PM) UA Bili [Negative] Negative *NA* (12/14/15 1:55 PM) UA Leuk Est Small [Negative] *ABN* (12/14/15 1:55 PM) UA Nitrite Negative [Negative] (12/14/15 1:55 PM) UA WBC [0-5 /HPF] 1 /HPF (12/14/15 1:55 PM) UA RBC [0-2 /HPF] 4 /HPF *HI* (12/14/15 1:55 PM) UA Bacteria [None Occasional /HPF Seen /HPF] *NA* (12/14/15 1:55 PM) UA Sq Epi [Few /LPF] Occasional /LPF *NA* (12/14/15 1:55 PM) UA Hyal Cast [0-2 13 /LPF /LPF] *HI* (12/14/15 1:55 PM) UA Mucus [None Seen Few /LPF /LPF] *NA* (12/14/15 1:55 PM) HEMATOLOGY Most recent to 1 oldest [Reference Range]: WBC [3.7-10.4 K/CMM] 9.0 K/CMM (12/14/15 12:38 PM) RBC [4.70-6.10 4.62 M/CMM M/CMM] *LOW* (12/14/15 12:38 PM) Hgb [14.0-18.0 g/dL] 13.8 g/dL *LOW* (12/14/15 12:38 PM) Hct [42.0-54.0 %] 41.7 % *LOW* (12/14/15 12:38 PM) MCV [80.0-94.0 fL] 90.3 fL (12/14/15 12:38 PM) MCH [27.0-31.0 pg] 29.9 pg (12/14/15 12:38 PM) MCHC [32.0-36.0 33.2 g/dL g/dL] (12/14/15 12:38 PM) RDW [11.5-14.5 %] 13.5 % (12/14/15 12:38 PM) Platelet [133-450 177 K/CMM K/CMM] (12/14/15 12:38 PM) MPV [7.4-10.4 fL] 9.1 fL (12/14/15 12:38 PM) Segs [45.0-75.0 %] 84.3 % *HI* (12/14/15 12:38 PM) Lymphocytes 7.0 % [20.0-40.0 %] *LOW* (12/14/15 12:38 PM) Monocytes [2.0-12.0 8.4 % %] (12/14/15 12:38 PM) Eosinophils [0.0-4.0 0.1 % %] (12/14/15 12:38 PM) Basophils [0.0-1.0 0.2 % %] (12/14/15 12:38 PM) Segs-Bands # 7.6 K/CMM [1.5-8.1 K/CMM] (12/14/15 12:38 PM) Lymphocytes # 0.6 K/CMM [1.0-5.5 K/CMM] *LOW* (12/14/15 12:38 PM) Monocytes # [0.0-0.8 0.8 K/CMM K/CMM] (12/14/15 12:38 PM) PT [12.0-14.7 15.6 seconds seconds] *HI* (12/14/15 12:38 PM) INR [0.85-1.17] 1.21 *HI* (12/14/15 12:38 PM) PTT [22.9-35.8 33.1 seconds seconds] (12/14/15 12:38 PM) Immunizations No data available for this [...]
--- OUTSIDE RECORDS SUMMARY | 2018-04-01 10:45 | XMS REPORT | Summary of Care ---
Author Author [facility] Address Unknown Phone Unavailable Encounter NILTON Giles(JOHN) [id number] Date(s): 11/13/15 - 12/12/15 [facility] Discharge Disposition: Home or Self Care Attending Physician: Breanna Romero MD Vital Signs No [...]
--- OUTSIDE RECORDS SUMMARY | 2018-04-01 10:45 | XMS REPORT | Summary of Care ---
Author Author [facility] Organization [facility] Address Unknown Phone Unavailable Encounter HQ Tisha(FIN) [id number] Date(s): 04/19/17 - 04/19/17 [facility] [address] [place] [address]- Discharge Disposition: Home or Self Care Attending [...]
--- NOTE | 2018-04-01 10:50 | NUR ---
AMBULATED TO BAY 9. PREPROCEDURE TEACHING PROVIDED. PREPPED PER PROCEDURE PROTOCOL. ORDERS RECEIVED AND NOTED. AAOX3, VSS. BENADRYL 50MG PO X1 AND XANAX 0.5MG PO X1 ADMINISTERED ORDERED. DP/PT PULSES 1+ BILATERALLY. DENIED PAIN OR NEEDS AT THIS TIME. BED IN LOWEST POSITION, SIDE RAIL UP, CALL LIGHT WITHIN REACH. SPOUSE AT BEDSIDE.
[2018-04-01] MEDS ORDERED: DIPHENHYDRAMINE HCL 25 MG CAP ONE (10:59)
[2018-04-01] MEDS ORDERED: ALPRAZOLAM 0.5 MG TAB ONE (10:59)
[2018-04-01] MEDS ORDERED: HEPARIN SOD/SOD CHLORIDE 2,000 ML ONE (13:01)
[2018-04-01] MEDS ORDERED: FENTANYL CITRATE/PF 100MCG/2 ML INJ ONE (13:01)
[2018-04-01] MEDS ORDERED: SODIUM CHLORIDE 0.9% 1000ML 1,000 ML ONE (13:01)
[2018-04-01] MEDS ORDERED: LIDOCAINE HCL 2% LOCAL 20 ML VIAL ONE (13:01)
[2018-04-01] MEDS ORDERED: MIDAZOLAM HCL 2 MG/2 ML VIAL ONE (13:01)
[2018-04-01] MEDS ORDERED: IOPAMIDOL 370 MG/ML 200 ML INFUS..BTL INJ ONE (13:02)
[2018-04-01] MEDS ORDERED: IOPAMIDOL 300MG/ML 100 ML INFUS..BTL IV ONE ×2 (13:13→13:38)
[2018-04-01] MEDS ORDERED: TICAGRELOR 90 MG TABLET ONE (13:46)
[2018-04-01] MEDS ORDERED: ASPIRIN 325 MG TAB ONE (13:46)
[2018-04-01] MEDS ORDERED: PROTAMINE SULFATE 10 MG/ML 5 ML VIAL ONE (13:52)
[2018-04-01] MEDS ORDERED: ATROPINE SULFATE 0.1 MG/ML 10ML SYR ONE (15:01)
[2018-04-01] MEDS ORDERED: NITROGLYCERIN/D5W 200 MCG/ML 250 ML ONE (15:19)
[2018-04-01] MEDS ORDERED: HEPARIN SOD (PORCINE) 1000 UNIT/ML 30ML ONE (15:19)
--- OUTSIDE RECORDS SUMMARY | 2018-04-01 15:32 | XMS REPORT | Clinical Summary ---
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 For more information, davida enciso contact: Pj Oconnor [address] [place] [address]
[2018-04-01] MEDS ORDERED: HYDRALAZINE HCL 20 MG/ML VIAL IV PRN (19:00)
[2018-04-01] MEDS ORDERED: MORPHINE SULFATE 2 MG/ML SYR IV PRN (19:00)
[2018-04-01] MEDS ORDERED: MORPHINE SULFATE INJ 4 MG/ML INJ IV PRN (19:15)
--- NOTE | 2018-04-01 19:15 | NUR ---
PATIENT REMAINS ON BEDREST UNTIL 2129, CALL LIGHT AND URINAL WITHIN EASY REACH. PRESSURE DRESSING INTACT TO THE RIGHT GROIN WITH SMALL AMOUNT OF BLOOD NOTED TO THE DRESSING, NO HEMATOMA NOTED. WILL CONTINUE TO CLOSELY MONITOR THE SITE.
[2018-04-01] MEDS ORDERED: ATORVASTATIN 10 MG TAB PO SCH (21:00)
[2018-04-01] MEDS ORDERED: DONEPEZIL HCL 5 MG TAB PO SCH (21:00)
--- NOTE | 2018-04-01 22:27 | NUR ---
PRESSURE DRESSING INTACT TO THE RIGHT GROIN WITH SMALL AMOUNT OF BLOOD NOTED TO THE DRESSING. NO HEMATOMA NOTED, PATIENT DENIES PAIN. CALL LIGHT WITHIN EASY REACH, WILL CONTINUE TO CLOSELY MONITOR THE SITE.
[2018-04-02] VITALS: BP 163/85
--- NOTE | 2018-04-02 00:24 | NUR ---
PRESSURE DRESSING INTACT TO THE RIGHT GROIN, NO HEMATOMA NOTED. NO PAIN VOICED, CALL LIGHT IN EASY REACH.
[2018-04-02 04:00] VITALS: BP 161/74
--- NOTE | 2018-04-02 04:15 | NUR ---
PATIENT IS ASLEEP, HE'S EASY TO AROUSE. NO RESPIRATORY DISTRESS OBSERVED, DRESSING INTACT TO THE RIGHT GROIN WITHOUT HEMATOMA. URINAL AND CALL LIGHT WITHIN EASY REACH.
[2018-04-02 06:19] LABS: BASOPHILS % 0.4 % (0.0-1.0); EOSINOPHILS # (AUTO) 0.2 (0.0-0.4); EOSINOPHILS % 2.3 % (0.0-6.0); HEMATOCRIT 37.5 % (38.2-49.6); HEMOGLOBIN 12.7 g/dL (14.0-18.0); LYMPHOCYTES # (AUTO) 2.2 (1.0-3.2); LYMPHOCYTES % 21.6 % (18.0-39.1); MEAN CORPUSCULAR HEMOGLOBIN 31.1 pg (28-32); MEAN CORPUSCULAR HGB CONC 33.9 g/dL (31-35); MEAN CORPUSCULAR VOLUME 91.7 fL (81-99); MONOCYTES # (AUTO) 0.8 (0.2-0.8); MONOCYTES % 7.6 % (4.4-11.3); NEUTROPHILS % 67.7 % (38.7-80.0); PLATELET COUNT 257 x10e3/uL (140-360); RED BLOOD COUNT 4.09 x10e6/uL (4.3-5.7); RED CELL DISTRIBUTION WIDTH 13.1 % (11.7-14.4)
[2018-04-02 06:46] LABS: ANION GAP 10.7 mmol/L (8-16); BLOOD UREA NITROGEN 12 mg/dL (7-26); BUN/CREATININE RATIO 14 (6-25); CALCIUM 8.3 mg/dL (8.4-10.2); CARBON DIOXIDE 22 mmol/L (22-29); CHLORIDE 110 mmol/L (98-107); CREATININE, SERUM 0.83 mg/dL (0.72-1.25); EST GLOMERULAR FILTRATION RATE > 60 ML/MIN (60-); GLUCOSE 123 mg/dL (74-118); POTASSIUM 3.7 mmol/L (3.5-5.1); SODIUM 139 mmol/L (136-145)
--- NOTE | 2018-04-02 07:22 | NUR ---
Rn Quality to bedside to discuss plan of care with patient/family. CM/SW role and care transitions discussed. Anticipated discharge plan discussed along with duration of care. CM/SW discussed patients right to make decisions in care. CM/SW work hours given. 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 Breanna Romero Current/Previous DME: uses a cane at times. also has an electric scooter Other Services: none Employment Status: retired Areas of Concerns: none Referral Needs: none Education Needs: medical management IMM/BASURTO given and signed (if applicable): BASURTO Goal for discharge: home today; will provide transportation CM/SW left business card at the bedside with contact information. Name and number was also written on the patients whiteboard. Patient verbalized understanding of discussion. CM will follow-up with ongoing discharge and transition of care needs.
[2018-04-02 07:30] VITALS: BP 161/74
[2018-04-02 08:00] VITALS: BP 165/70
[2018-04-02] MEDS ORDERED: METFORMIN HCL 500 MG TAB PO SCH (08:00)
[2018-04-02] MEDS ORDERED: ASPIRIN 81 MG CHEW TAB PO SCH (09:00)
[2018-04-02] MEDS ORDERED: PANTOPRAZOLE SOD 40 MG TABEC PO SCH (09:00)
[2018-04-02] MEDS ORDERED: ESCITALOPRAM OXALATE 10 MG TAB PO SCH (09:00)
[2018-04-02] MEDS ORDERED: CLOPIDOGREL BISULFATE 75 MG TAB PO SCH (09:00)
--- NOTE | 2018-04-02 10:12 | Diagnostic Imaging Report ---
EXAMINATION: CHEST SINGLE (PORTABLE) COMPARISON: None FINDINGS: TUBES and LINES: None. LUNGS: Lungs are well inflated. Minimal patchy dependent atelectasis. There is no evidence of pneumonia or pulmonary edema. PLEURA: No pleural effusion or pneumothorax. HEART AND MEDIASTINUM: The cardiomediastinal silhouette is unremarkable. BONES AND SOFT TISSUES: No acute osseous lesion. Soft tissues are unremarkable. UPPER ABDOMEN: No free air under the diaphragm. IMPRESSION: No acute radiographic abnormality. Signed by: Dr. Janet Everett MD on 04/02/2018 10:08 AM
[2018-04-02 12:30] VITALS: BP 148/75
--- NOTE | 2018-04-02 12:49 | Operative Report ---
DATE OF PROCEDURE: April 01, 2018 INDICATIONS: Peripheral arterial disease. PROCEDURES PERFORMED 1. Abdominal aorta catheter placement and abdominal aortogram. 2. Bilateral lower extremity angiograms. 3. Stent placement in the left external iliac artery. 4. Balloon angioplasty of the left common femoral artery. 5. Manual removal of the right femoral artery sheath. Access obtained in the right femoral artery. A 6-Tamazight sheath was placed. Abdominal aortogram demonstrated plaque in the abdominal aorta. Right iliac artery had diffuse 50% stenosis. Left external iliac artery had 80% stenosis. Bilateral femoral arteries were occluded. Right femoral-anterior tibial bypass was patent; however, distal anastomosis had 90% stenosis. Single vessel runoff bilaterally. Left femoral artery was completely occluded. A decision was made to intervene on the left iliac artery. A single stent was placed, 8 x 40 mm post dilated with a 7-mm Lutonix drug-coated balloon, excellent end result, less than 10% stenosis. Sheath was removed under manual pressure. Patient was observed in the hospital overnight. RECOMMENDATIONS 1. Staged left superficial femoral artery angioplasty via left popliteal access. 2. Staged right femoral-anterior tibial artery intervention for the distal anastomosis. Job#: [id number] TAY
== END 2018-04-02 13:09 | disposition home or self-care (01) ==
LOC: CATH LAB 10:40 → CATH LAB V 15:08 → IMCU 16:22
PROVIDERS: ADMIT Internal Medicine Interventional Cardiology; ATTEND Internal Medicine Interventional Cardiology
DX: I70.203 Unspecified atherosclerosis of native arteries of extremities, bilateral legs (principal); R07.9 Chest pain, unspecified; R09.89 Other specified symptoms and signs involving the circulatory and respiratory systems; Z13.6 Encounter for screening for cardiovascular disorders; J44.9 Chronic obstructive pulmonary disease, unspecified; E11.9 Type 2 diabetes mellitus without complications; I10 Essential (primary) hypertension; Z86.73 Personal history of transient ischemic attack (TIA), and cerebral infarction without residual deficits; Z87.891 Personal history of nicotine dependence; Z79.84 Long term (current) use of oral hypoglycemic drugs; Z79.82 Long term (current) use of aspirin
CPT/HCPCS: 36415 ×3; 37221; 37224; 71045; 75716; 80048; 80053; 80061; 82948 ×2; 85025 ×2; C1769 ×2; C1876; C1887; C2623; G0378 ×2; J1644; J2001; J2250; J2720; J7030; Q9967 ×2; S0164

== ENCOUNTER 2018-04-26 08:43 | Observation (INO) | payer MEDICARE, OTHER ==
[2018-04-25 11:23] LABS: BASOPHILS % 0.4 % (0.0-1.0); EOSINOPHILS # (AUTO) 0.3 (0.0-0.4); EOSINOPHILS % 2.7 % (0.0-6.0); HEMATOCRIT 41.5 % (38.2-49.6); LYMPHOCYTES # (AUTO) 2.7 (1.0-3.2); LYMPHOCYTES % 26.6 % (18.0-39.1); MEAN CORPUSCULAR HEMOGLOBIN 31.5 pg (28-32); MEAN CORPUSCULAR HGB CONC 33.7 g/dL (31-35); MEAN CORPUSCULAR VOLUME 93.5 fL (81-99); MONOCYTES # (AUTO) 0.6 (0.2-0.8); MONOCYTES % 6.4 % (4.4-11.3); NEUTROPHILS # (AUTO) 6.4 (2.1-6.9); NEUTROPHILS % 63.6 % (38.7-80.0); PLATELET COUNT 261 x10e3/uL (140-360); RED BLOOD COUNT 4.44 x10e6/uL (4.3-5.7)
[2018-04-25 11:33] LABS: ALANINE AMINOTRANSFERASE 25 IU/L (0-55); ALBUMIN 3.9 g/dL (3.5-5.0); ALBUMIN/GLOBULIN RATIO 1.4 (0.8-2.0); ALKALINE PHOSPHATASE 91 IU/L (40-150); ANION GAP 11.4 mmol/L (8-16); BLOOD UREA NITROGEN 12 mg/dL (7-26); BUN/CREATININE RATIO 12 (6-25); CALCIUM 8.7 mg/dL (8.4-10.2); CARBON DIOXIDE 26 mmol/L (22-29); CHLORIDE 104 mmol/L (98-107); CREATININE, SERUM 0.97 mg/dL (0.72-1.25); EST GLOMERULAR FILTRATION RATE > 60 ML/MIN (60-); GLUCOSE 121 mg/dL (74-118); POTASSIUM 4.4 mmol/L (3.5-5.1); SODIUM 137 mmol/L (136-145)
[2018-04-25 11:37] LABS: INR 0.91; PROTHROMBIN TIME 13.1 seconds (11.9-14.5)
[2018-04-26] VITALS (7 sets, daily range): BP systolic 102–165; BP diastolic 62–116
[~2018-04-26] VITALS: Ht 170.2 cm; Wt 89.4 kg
[~2018-04-26 08:43] MED LIST changes: +LOSARTAN POTAS100 MG PO
--- OUTSIDE RECORDS SUMMARY | 2018-04-26 08:45 | XMS REPORT | Clinical Summary ---
Author Author [facility] Organization [facility] Address Unknown Phone Unavailable Care Team Providers Care Willower Name Role Phone Breanna Romero MD PCP [...] abuse counseling 05/25/2017 Office Visit Neurology after 04/25/2017 Family History Medical History Relation Name Comments [...] Taken Vital Sign Reading 05/25/2017 1:21 PM BENEFITS CONSULTANT Blood Pressure 135/71 05/25/2017 1:21 PM BENEFITS CONSULTANT Pulse 77 - Temperature - - Respiratory Rate - - Oxygen Saturation - - Inhaled Oxygen - Concentration 05/25/2017 1:21 PM BENEFITS CONSULTANT Weight 85.3 kg (188 lb) 05/25/2017 1:21 PM BENEFITS CONSULTANT Height 170.2 cm (5' 7") 05/25/2017 1:21 PM BENEFITS CONSULTANT Body Mass Index 29.44 Plan of Treatment Health Maintenance Due Date Last Done Comments COLON CANCER SCREENING 11/12/1995 SHINGLES VACCINES (1 of 11/12/1995 2) PNEUMOCOCCAL 2010 POLYSACCHARIDE VACCINE AGE 65 AND OVER PNEUMOCOCCAL-13 2010 INFLUENZA VACCINE 11/03/2017 Results Not on fileafter 04/25/2017 Insurance Payer Benefit Subscriber ID Type Phone Address Plan / Group MEDICARE MEDICARE xxxxxxxxxx Medicare [place], [place] PART A AND B BANKERS LIFE AND CASUALTY BANKERS xxxxxxxxx Commercial LIFE AND CASUALTY Advance Directives Patient has advance care planning documents on file. For more information, davida enciso contact: Pj Oconnor [address] [place] [address]
--- OUTSIDE RECORDS SUMMARY | 2018-04-26 08:46 | XMS REPORT | Continuity of Care Document ---
Author Author Mayra michael [facility] Interface Address Unknown Phone Unavailable Problems Problem Status Onset Date Classification Date Reported Comments Source R06.00 Active 12/17/2017 [facility] Shortness of breath 04/23/2017 07/26/2017 [facility] R06.02, R07.9 Active 04/16/2017 [facility] DYSPHEA, CHEST PAIN Active 04/09/2017 [facility] Discharge Diagnosis: Dehydration 12/14/2015 12/17/2015 [facility] Discharge Diagnosis: Gastroenteritis 12/14/2015 12/17/2015 [facility] FEVER Active 12/14/2015 [facility] * Active 06/25/2015 [facility] TIA VS CVA Active 06/17/2015 [facility] UNK Active 08/07/2014 [facility] 600.21/788.20/185 Active 08/07/2014 [facility] 440.21/443.9 Active 10/06/2011 [facility] BLE DX:440.21 Active 09/18/2011 [facility] PVD 443.9 Active 01/06/2011 [facility] PVD Active 12/16/2010 [facility] 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 [facility] [place] Cholesterol Active Problem 04/22/2017 [facility] [place] Hypertension Active Problem 07/26/2017 [facility] [place] Poor peripheral circulation Active Problem 07/26/2017 [facility] [place] Prostate cancer Active Problem 07/26/2017 [facility] [place] PVD - Peripheral vascular disease Active Problem 07/26/2017 [facility] [place] Smoker Active Problem 07/26/2017 [facility] [place] Stroke<sup>2</sup> Resolved Problem 07/26/2017 no s/s [facility] [place] Chest pain, unspecified 07/26/2017 [facility] Occlusion and stenosis of right vertebral artery 07/26/2017 [facility] Atherosclerosis of aorta 07/26/2017 [facility] Dyspnea, unspecified 07/22/2017 [facility] Centrilobular emphysema 07/22/2017 [facility] Fatty liver, not elsewhere classified 07/22/2017 [facility] PERIPH VASCULAR DIS NOS Active [facility] ATH EXT NTV AT W CLAUDCT Active [facility] BPH LOC W URIN OBS/LUTS Active [facility] RETENTION OF URINE NOS Active [facility] MALIGN NEOPL PROSTATE Active [facility] RIGHT SIDE STROKE Active [facility] [place] 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 WASTE: F/P - Black; E - Municipal Trash [facility] Inactive 04/15/2017 [facility] Ondansetron 4 MG Oral Tablet [Zofran] 4 mg=1 tab, PO, BID, X 5 day, # 10 tab, 0 Refill(s) Active 12/14/2015 [facility] Sodium Chloride 0.154 MEQ/ML Injectable Solution 500 mL, 500 ml/hr, Infuse Over: 1 hr, Route: IV, ONCE, Priority: STAT, Dosing Weight 81.818 kg, Start date: 12/14/15 11:44:00 CDT, Duration: 1 doses or times, Stop date: 12/14/15 11:44:00 CDT Inactive 12/14/2015 [facility] Zofran 4 mg, Route: IVP, Drug form: INJ, ONCE, Dosing Weight 81.818, kg, Priority: STAT, Start date: 12/14/15 11:44:00 CDT, Stop date: 12/14/15 11:44:00 CDT Inactive 12/14/2015 [facility] Sodium Chloride 0.154 MEQ/ML Injectable Solution 500 mL, 2,000 ml/hr, Infuse Over: 15 minutes, Route: IV, ONCE, Priority: STAT, Dosing Weight 81.818 kg, Start date: 12/14/15 11:21:00 CDT, Duration: 1 doses or times, Stop date: 12/14/15 11:21:00 CDT Inactive 12/14/2015 [facility] Saline Flush 0.9% 10 mL, Route: IVP, Drug Form: INJ, Dosing Weight 81.818, kg, PRN, PRN Line Flush, Start date: 12/14/15 11:21:00 CDT, Duration: 30 day, Stop date: 01/13/16 11:20:00 CDTNotes: (Same as: BD Posiflush) Inactive 12/14/2015 [facility] Lipitor 20 mg, 2 tab, Route: PO, Drug form: TAB, Bedtime, Dosing Weight 81.364, kg, Start date: 06/18/15 21:00:00, Duration: 30 day, Stop date: 07/17/15 21:00:00Notes: (Same As: Lipitor) Inactive 06/19/2015 [facility] Amlodipine 5 MG Oral Tablet [Norvasc] 5 mg=1 tab, PO, Daily, # 30 tab, 1 Refill(s) Active 06/18/2015 [facility] Aspirin 81 MG Enteric Coated Tablet 81 mg=1 tab, PO, Daily, # 90 tab, 0 Refill(s) Active 06/18/2015 [facility] clopidogrel 75 mg oral tablet 75 mg=1 tab, PO, Daily, # 90 tab, 0 Refill(s) Active 06/18/2015 [facility] atorvastatin 10 MG Oral Tablet [Lipitor] 10 mg=1 tab, PO, Bedtime, # 30 tab, 0 Refill(s) Active 06/18/2015 [facility] Plavix 75 mg, 1 tab, Route: PO, Drug form: TAB, Daily, Dosing Weight 81.364, kg, Start date: 06/18/15 10:30:00, Duration: 30 day, Stop date: 07/18/15 9:00:00Notes: (Same As: Plavix) Inactive 06/18/2015 [facility] Aspirin 81 MG Enteric Coated Tablet 81 mg, 1 tab, Route: PO, Drug form: ECTAB, Daily, Dosing Weight 81.364, kg, Start date: 06/18/15 10:30:00, Duration: 30 day, Stop date: 07/18/15 9:00:00Notes: Do not crush or chew. (Same As: Ecotrin) Inactive 06/18/2015 [facility] Ondansetron 4 mg, 2 mL, Route: IVP, Drug form: INJ, Q6H, Dosing Weight 81.364, kg, PRN Nausea & Vomiting, Start date: 06/17/15 17:07:00, Duration: 30 day, Stop date: 07/17/15 17:06:00Notes: (Same as: Sukhwinder) MEDICATION WASTE Product Size: 4 mg Product Wasted: ___ mg No Longer Active 06/17/2015 [facility] Acetaminophen 650 mg, 2 tab, Route: PO, Drug form: TAB, Q4H, Dosing Weight 81.364, kg, PRN Pain 1-3/Temp > 100.4 F, Start date: 06/17/15 17:07:00, Duration: 30 day, Stop date: 07/17/15 17:06:00Notes: Do not exceed 4 gm/day. (Same as: Tylenol) No Longer Active 06/17/2015 [facility] Aspirin 81 MG Enteric Coated Tablet 81 mg, 1 tab, Route: PO, Drug form: ECTAB, ONCE, Dosing Weight 80, kg, Start date: 06/17/15 16:19:00, Stop date: 06/17/15 16:19:00Notes: Do not crush or chew. (Same As: Ecotrin) Inactive 06/17/2015 [facility] Phenazopyridine hydrochloride 200 MG Oral Tablet [Pyridium] 200 mg=1 tab, PO, TID, PRN Dysuria, X 2 day, # 6 tab, 0 Refill(s) No Longer Active 08/20/2014 [facility] Docusate Sodium 100 MG Oral Capsule [Colace] 100 mg=1 cap, PO, BID, PRN Constipation, # 20 cap, 0 Refill(s) Active 08/20/2014 [facility] Acetaminophen 300 MG / Codeine Phosphate 30 MG Oral Tablet [Tylenol with Codeine #3] 1 - 2 tab, PO, Q6H, PRN Pain, X 4 day, # 32 tab, 0 Refill(s) Active 08/20/2014 [facility] Cipro 400 mg, 200 mL, Route: IVPB, Drug form: INJ, ONCE, Dosing Weight 80, kg, Start date: 08/20/14 8:01:00, Stop date: 08/20/14 8:01:00Notes: Do not refrigerate Inactive 08/20/2014 [facility] Calcium Chloride 0.0014 MEQ/ML / Potassium Chloride 0.004 MEQ/ML / Sodium Chloride 0.103 MEQ/ML / Sodium Lactate 0.028 MEQ/ML Injectable Solution 1,000 mL, Rate: 25 ml/hr, Infuse over: 40 hr, Route: IV, Dosing Weight 80 kg, Total Volume: 1,000, Start date: 08/20/14 7:32:00, Duration: 30 day, Stop date: 09/19/14 7:31:00 Inactive 08/20/2014 [facility] Unknown Home Medication 4 drops, TID, ear drops left ear, Refill(s) 0Special Instructions: ear drops left ear Active 08/13/2014 [facility] Tamsulosin hydrochloride 0.4 MG Oral Capsule [Flomax] 0.4 mg=1 cap, PO, Daily, # 30 cap, 0 Refill(s) No Longer Active 08/13/2014 [facility] cefazolin 2 gm, 100 mL, Route: IVPB, Drug form: INJ, ONCALL, Start date: 10/16/11 10:00:00, Duration: 1 doses or times IVPB No Longer Active [facility] 10/16/2011 [facility] Allergies, Adverse Reactions, Alerts Substance Category Reaction [...] Emphysema. 2. Hepatic steatosis. 3. Atherosclerosis. SL: [id number] 03/10/2018 - - Read by: Matthew Ramirez MD Dictated Date/time: 03/10/18 16:15 Electronically Signed by: Matthew Ramirez MD 03/10/18 16:31 FINAL REPORT [facility] Chest 2 views DX Chest 2 views [...] IMPRESSION: No acute cardiopulmonary process. Emphysema. SL: [id number] 12/17/2017 - - Read by: Bozena Zambrano Dictated Date/time: 12/17/17 15:35 Electronically Signed by: Bozena Zambrano 12/17/17 15:36 FINAL REPORT [facility] Brain/Neck CTA Brain/Neck CTA Study: Brain/Neck CTA 04/19/2017 3:29 PM [employer]ICAL PL[employer]NER Ordering Physician: Foster Araujo MD Clinical Indication: [...] ischemic changes are present as described. SL: [id number] 04/19/2017 - - Read by: She Wagner MD Dictated Date/time: 04/19/17 19:00 Electronically Signed by: She Wagner MD 04/19/17 19:43 FINAL REPORT [facility] Chest w contrast CT Chest w contrast CT Clinical Indication: Chest pain. Dyspnea Comparison: No prior CT available for comparison. Correlation made to same day chest radiographs.. TECHNIQUE: Sequential trans-axial images were obtained thru the chest and upper abdomen after administration of iodinated contrast. Coronal and sagittal reconstructions were obtained. 75 cc of Omnipaque contrast material was used for the exam. Dose: QGR=977 mGy-cm FINDINGS: LUNG PARENCHYMA AND PLEURA: There [...] Dr. Araujo on 04/15/2017 3:30 PM. SL: [id number] 04/15/2017 - - Read by: Kobi Stewart MD Dictated Date/time: 04/15/17 15:20 Electronically Signed by: Kobi Stewart MD 04/15/17 15:33 FINAL REPORT [facility] Chest 2 views DX Chest 2 views [...] IMPRESSION: No acute infiltrates or effusions. SL: [id number] 04/15/2017 - - Read by: Alycia Skelton [...] Sq Epi Occasional /LPF Few /LPF 12/14/2015 [facility] URINE AND STOOL UA Bacteria Occasional /HPF None Seen /HPF 12/14/2015 [facility] URINE AND STOOL UA RBC 4 /HPF 0 - 2 12/14/2015 [facility] URINE AND STOOL UA Leuk Est Small *ABN* (12/14/15 1:55 PM) Negative 12/14/2015 [facility] URINE AND STOOL UA Ketones Negative mg/dL Negative mg/dL 12/14/2015 [facility] URINE AND STOOL UA Bili Negative *NA* (12/14/15 1:55 PM) Negative 12/14/2015 [facility] URINE AND STOOL UA Nitrite Negative (12/14/15 1:55 PM) Negative 12/14/2015 [facility] URINE AND STOOL UA Blood Small *ABN* (12/14/15 1:55 PM) Negative 12/14/2015 [facility] URINE AND STOOL UA Glucose Negative mg/dL Negative mg/dL 12/14/2015 [facility] URINE AND STOOL UA pH 5.0 5.0 - 8.0 12/14/2015 [facility] URINE AND STOOL UA Spec Grav 1.027 <=1.030 12/14/2015 [facility] URINE AND STOOL UA Protein 100 mg/dL Negative mg/dL 12/14/2015 [facility] CARDIAC ENZYMES Total CK 79 unit/L 12 - 191 12/14/2015 [facility] CARDIAC ENZYMES Troponin-I null 0.00 - 0.40 12/14/2015 [facility] CARDIAC ENZYMES CK MB 0.9 ng/mL 0.5 - 3.6 12/14/2015 [facility] CARDIAC ENZYMES CK MB Index 1.1 0.0 - 2.5 12/14/2015 [facility] CHEM PANEL Amylase Lvl 24 unit/L 25 - 115 12/14/2015 [facility] CHEM PANEL Lipase Lvl 70 unit/L 73 - 393 12/14/2015 [facility] CHEM PANEL eGFR 58 mL/min/1.73m2 12/14/2015 Result [...] should be multiplied by the estimated BMI. [facility] CHEM PANEL CO2 25 meq/L 24 - 32 12/14/2015 [facility] CHEM PANEL Potassium Lvl 3.5 meq/L 3.5 - 5.1 12/14/2015 [facility] CHEM PANEL Chloride Lvl 106 meq/L 95 - 109 12/14/2015 [facility] CHEM PANEL Sodium Lvl 140 meq/L 135 - 145 12/14/2015 [facility] CHEM PANEL Calcium Lvl 8.0 mg/dL 8.5 - 10.5 12/14/2015 [facility] CHEM PANEL AGAP 12.5 meq/L 10.0 - 20.0 12/14/2015 [facility] CHEM PANEL BUN 25 mg/dL 7 - 22 12/14/2015 [facility] CHEM PANEL Glucose Lvl 135 mg/dL 70 - 99 12/14/2015 [facility] CHEM PANEL Creatinine Lvl 1.25 mg/dL 0.50 - 1.40 12/14/2015 [facility] PTT 33.1 s 22.9 - 35.8 12/14/2015 [facility] Hct 41.7 % 42.0 - 54.0 12/14/2015 [facility] MCV 90.3 fL 80.0 - 94.0 12/14/2015 [facility] Platelet 177 K/CMM 133 - 450 12/14/2015 [facility] MPV 9.1 fL 7.4 - 10.4 12/14/2015 [facility] MCH 29.9 pg 27.0 - 31.0 12/14/2015 [facility] MCHC 33.2 g/dL 32.0 - 36.0 12/14/2015 [facility] RDW 13.5 % 11.5 - 14.5 12/14/2015 [facility] Hgb 13.8 g/dL 14.0 - 18.0 12/14/2015 [facility] RBC 4.62 M/CMM 4.70 - 6.10 12/14/2015 [facility] WBC 9.0 K/CMM 3.7 - 10.4 12/14/2015 [facility] PT 15.6 s 12.0 - 14.7 12/14/2015 [facility] HEMATOLOGY INR 1.21 0.85 - 1.17 12/14/2015 [facility] HEMATOLOGY Monocytes 8.4 % 2.0 - 12.0 12/14/2015 [facility] HEMATOLOGY Lymphocytes # 0.6 K/CMM 1.0 - 5.5 12/14/2015 [facility] HEMATOLOGY Eosinophils 0.1 % 0.0 - 4.0 12/14/2015 [facility] HEMATOLOGY Basophils 0.2 % 0.0 - 1.0 12/14/2015 [facility] HEMATOLOGY Segs-Bands # 7.6 K/CMM 1.5 - 8.1 12/14/2015 [facility] Monocytes # 0.8 K/CMM 0.0 - 0.8 12/14/2015 [facility] Lymphocytes 7.0 % 20.0 - 40.0 12/14/2015 [facility] Segs 84.3 % 45.0 - 75.0 12/14/2015 [facility] Abdomen acute series w chest 1 view [...] is nonobstructive. No acute osseous abnormality. SL: [id number] 12/14/2015 - - Read by: Francesco Lazo MD Dictated Date/time: 12/14/15 12:01 Electronically Signed by: Francesco Lazo MD 12/14/15 12:02 FINAL REPORT [facility] Brain wo contrast CT Brain wo contrast [...] MRI of brain as clinically indicated. SL: [id number] 06/25/2015 - - Read by: Manuel Calhoun [...] Sunny Arthur MD 06/18/15 09:37 FINAL REPORT [facility] CHEM PANEL eGFR 90 mL/min/1.73m2 06/17/2015 Result [...] should be multiplied by the estimated BMI. [facility] CHEM PANEL Total Protein 6.7 g/dL 6.4 - 8.4 06/17/2015 [facility] CHEM PANEL BUN 12 mg/dL 7 - 22 06/17/2015 [facility] CHEM PANEL Glucose Lvl 89 mg/dL 70 - 99 06/17/2015 [facility] CHEM PANEL Creatinine Lvl 0.82 mg/dL 0.50 - 1.40 06/17/2015 [facility] CHEM PANEL Potassium Lvl 3.9 meq/L 3.5 - 5.1 06/17/2015 [facility] CHEM PANEL Sodium Lvl 140 meq/L 135 - 145 06/17/2015 [facility] CHEM PANEL Chloride Lvl 107 meq/L 95 - 109 06/17/2015 [facility] CHEM PANEL Calcium Lvl 8.2 mg/dL 8.5 - 10.5 06/17/2015 [facility] CHEM PANEL CO2 29 meq/L 24 - 32 06/17/2015 [facility] CHEM PANEL Albumin Lvl 3.6 g/dL 3.5 - 5.0 06/17/2015 [facility] CHEM PANEL ALT 21 unit/L 0 - 65 06/17/2015 [facility] CHEM PANEL AST 11 unit/L 0 - 37 06/17/2015 [facility] CHEM PANEL Bili Total 0.6 mg/dL 0.2 - 1.3 06/17/2015 [facility] CHEM PANEL Alk Phos 101 unit/L 39 - 136 06/17/2015 [facility] CHEM PANEL A/G Ratio 1.2 0.7 - 1.6 06/17/2015 [facility] CHEM PANEL Globulin 3.1 g/dL 2.0 - 4.0 06/17/2015 [facility] CHEM PANEL B/C Ratio 15 6 - 25 06/17/2015 [facility] CHEM PANEL AGAP 7.9 meq/L 10.0 - 20.0 06/17/2015 [facility] HEMATOLOGY Eosinophils # 0.1 K/CMM 0.0 - 0.5 06/17/2015 [facility] HEMATOLOGY Basophils # 0.1 K/CMM 0.0 - 0.2 06/17/2015 [facility] HEMATOLOGY Segs 74.6 % 45.0 - 75.0 06/17/2015 [facility] HEMATOLOGY Monocytes 6.6 % 2.0 - 12.0 06/17/2015 [facility] Lymphocytes 16.9 % 20.0 - 40.0 06/17/2015 [facility] Lymphocytes # 1.7 K/CMM 1.0 - 5.5 06/17/2015 [facility] Monocytes # 0.7 K/CMM 0.0 - 0.8 06/17/2015 [facility] HEMATOLOGY Eosinophils 1.4 % 0.0 - 4.0 06/17/2015 [facility] Basophils 0.5 % 0.0 - 1.0 06/17/2015 [facility] Segs-Bands # 7.6 K/CMM 1.5 - 8.1 06/17/2015 [facility] MPV 9.1 fL 7.4 - 10.4 06/17/2015 [facility] HEMATOLOGY Hct 43.7 % 42.0 - 54.0 06/17/2015 [facility] HEMATOLOGY MCV 91.1 fL 80.0 - 94.0 06/17/2015 [facility] HEMATOLOGY WBC 10.2 K/CMM 3.7 - 10.4 06/17/2015 [facility] HEMATOLOGY Platelet 220 K/CMM 133 - 450 06/17/2015 [facility] RBC 4.80 M/CMM 4.70 - 6.10 06/17/2015 [facility] Hgb 14.8 g/dL 14.0 - 18.0 06/17/2015 [facility] MCH 30.7 pg 27.0 - 31.0 06/17/2015 [facility] HEMATOLOGY RDW 13.0 % 11.5 - 14.5 06/17/2015 [facility] HEMATOLOGY MCHC 33.8 g/dL 32.0 - 36.0 06/17/2015 [facility] LIPIDS VLDL 31 06/17/2015 [facility] LIPIDS LDL (Calculated) 106 mg/dL <=99 mg/dL 06/17/2015 [facility] LIPIDS Trig 153 mg/dL <=149 mg/dL 06/17/2015 [facility] LIPIDS Chol 198 mg/dL <=199 mg/dL 06/17/2015 [facility] LIPIDS HDL 61 mg/dL >=61 mg/dL 06/17/2015 [facility] LIPIDS CHD Risk 3.25 4.00 - 7.30 06/17/2015 [facility] Carotid artery Doppler bilat US Carotid artery [...] than >230 >100 >4.0 near occlusion SL: [id number] 06/17/2015 - - Read by: Mando Velasquez MD Dictated Date/time: 06/18/15 07:30 Electronically Signed by: Mando Velasquez MD 06/18/15 07:32 FINAL REPORT [facility] ELECTROLYTES Potassium Lvl 3.8 meq/L 3.5 - 5.1 08/13/2014 [facility] ELECTROLYTES Sodium Lvl 140 meq/L 135 - 145 08/13/2014 [facility] ELECTROLYTES Chloride Lvl 106 meq/L 95 - 109 08/13/2014 [facility] ELECTROLYTES eGFR 77 mL/min/1.73m2 08/13/2014 1Result Comment: [...] should be multiplied by the estimated BMI. [facility] ELECTROLYTES Creatinine Lvl 1.0 mg/dL 0.5 - 1.4 08/13/2014 [facility] ELECTROLYTES BUN 8 mg/dL 7 - 22 08/13/2014 [facility] ELECTROLYTES Glucose Lvl 123 mg/dL 70 - 99 08/13/2014 2Interpretive Data: Adult reference range values reflect the clinical guidelines of the [place] [employer]. [facility] ELECTROLYTES CO2 28 meq/L 24 - 32 08/13/2014 [facility] ELECTROLYTES Calcium Lvl 8.7 mg/dL 8.5 - 10.5 08/13/2014 [facility] ELECTROLYTES AGAP 9.8 meq/L 10.0 - 20.0 08/13/2014 [facility] HEMATOLOGY MPV 9.3 fL 7.4 - 10.4 08/13/2014 [facility] HEMATOLOGY Platelet 224 K/CMM 133 - 450 08/13/2014 [facility] HEMATOLOGY Hct 42.4 % 42.0 - 54.0 08/13/2014 [facility] HEMATOLOGY MCV 92.6 fL 80.0 - 94.0 08/13/2014 [facility] MCH 32.3 pg 27.0 - 31.0 08/13/2014 [facility] MCHC 34.9 g/dL 32.0 - 36.0 08/13/2014 [facility] RDW 13.9 % 11.5 - 14.5 08/13/2014 [facility] RBC 4.58 M/CMM 4.70 - 6.10 08/13/2014 [facility] HEMATOLOGY WBC 10.5 K/CMM 3.7 - 10.4 08/13/2014 [facility] Hgb 14.8 g/dL 14.0 - 18.0 08/13/2014 [facility] Monocytes # 0.5 K/CMM 0.0 - 0.8 08/13/2014 [facility] HEMATOLOGY Lymphocytes # 2.7 K/CMM 1.0 - 5.5 08/13/2014 [facility] HEMATOLOGY Eosinophils # 0.1 K/CMM 0.0 - 0.5 08/13/2014 [facility] HEMATOLOGY Basophils # 0.1 K/CMM 0.0 - 0.2 08/13/2014 [facility] HEMATOLOGY Eosinophils 1.4 % 0.0 - 4.0 08/13/2014 [facility] HEMATOLOGY Segs-Bands # 7.1 K/CMM 1.5 - 8.1 08/13/2014 [facility] HEMATOLOGY Basophils 1.4 % 0.0 - 1.0 08/13/2014 [facility] HEMATOLOGY Segs 67.0 % 45.0 - 75.0 08/13/2014 [facility] HEMATOLOGY Lymphocytes 25.7 % 20.0 - 40.0 08/13/2014 [facility] HEMATOLOGY Monocytes 4.5 % 2.0 - 12.0 08/13/2014 [facility] URINE AND STOOL UA WBC null 0 - 5 08/13/2014 [facility] URINE AND STOOL UA RBC 3 /HPF 0 - 2 08/13/2014 [facility] URINE AND STOOL UA Leuk Est Negative (08/13/14 11:22 AM) Negative 08/13/2014 [facility] URINE AND STOOL UA Spec Grav 1.013 <=1.030 08/13/2014 [facility] URINE AND STOOL UA pH 5.0 5.0 - 8.0 08/13/2014 [facility] URINE AND STOOL UA Protein Negative mg/dL Negative mg/dL 08/13/2014 [facility] URINE AND STOOL UA Glucose Negative mg/dL Negative mg/dL 08/13/2014 [facility] URINE AND STOOL UA Ketones Negative mg/dL Negative mg/dL 08/13/2014 [facility] URINE AND STOOL UA Bili Negative *NA* (08/13/14 11:22 AM) Negative 08/13/2014 [facility] URINE AND STOOL UA Blood Small *ABN* (08/13/14 11:22 AM) Negative 08/13/2014 [facility] URINE AND STOOL UA Urobilinogen 2.0 mg/dL 0.1 - 1.0 08/13/2014 [facility] URINE AND STOOL UA Nitrite Negative (08/13/14 11:22 AM) Negative 08/13/2014 [facility] URINE AND STOOL UA Sq Epi None Seen 08/13/2014 [facility] URINE AND STOOL UA Turbidity Clear (08/13/14 11:22 AM) Clear 08/13/2014 [facility] URINE AND STOOL UA Color Yellow *NA* (08/13/14 11:22 AM) Yellow 08/13/2014 [facility] CHEMISTRY AGAP 9.6 meq/L 10.0 - 20.0 10/16/2011 LOW [facility] CHEMISTRY Calcium Lvl 8.5 mg/dL 8.5 - 10.5 10/16/2011 Normal [facility] CHEMISTRY Chloride Lvl 110 meq/L 95 - 109 10/16/2011 HI [facility] CHEMISTRY Sodium Lvl 140 meq/L 135 - 145 10/16/2011 Normal [facility] CHEMISTRY CO2 25 meq/L 24 - 32 10/16/2011 Normal [facility] CHEMISTRY Potassium Lvl 4.6 meq/L 3.5 - 5.1 10/16/2011 Normal [facility] CHEMISTRY Creatinine Lvl 1.0 mg/dL 0.5 - 1.4 10/16/2011 Normal [facility] CHEMISTRY BUN 17 mg/dL 7 - 22 10/16/2011 Normal [facility] CHEMISTRY Glucose Lvl 105 mg/dL 70 - 99 10/16/2011 [place] 1Interpretive Data: Adult reference range values reflect the clinical guidelines of the [place] [employer]. [facility] HEMATOLOGY PT 13.0 s 12.0 - 14.7 10/16/2011 Normal [facility] HEMATOLOGY INR 0.98 0.85 - 1.17 10/16/2011 Normal 2Interpretive Data: RECOMMENDED RANGES FOR PROTIME INR: 2.0-3.0 for most medical and surgical thromboembolic states. 2.5-3.5 for artificial heart valves and recurrent embolism. INR SHOULD BE USED ONLY FOR PATIENTS ON STABLE ANTICOAGULANT THERAPY. [facility] HEMATOLOGY PTT 37.0 s 22.9 - 35.8 10/16/2011 [place] 3Interpretive Data: Heparin Therapeutic Range: 57 - 92 Seconds [facility] HEMATOLOGY Hgb 16.2 g/dL 14.0 - 18.0 10/16/2011 Normal [facility] Hct 48.3 % 42.0 - 54.0 10/16/2011 Normal [facility] RBC 5.18 M/CMM 4.70 - 6.10 10/16/2011 Normal [facility] WBC 13.7 K/CMM 3.7 - 10.4 10/16/2011 [facility] RDW 13.5 % 11.5 - 14.5 10/16/2011 Normal [facility] MCV 93.4 fL 80.0 - 94.0 10/16/2011 Normal [facility] MCH 31.3 pg 27.0 - 31.0 10/16/2011 [facility] MCHC 33.5 g/dL 32.0 - 36.0 10/16/2011 Normal [facility] MPV 9.1 fL 7.4 - 10.4 10/16/2011 Normal [facility] Platelet 257 K/CMM 133 - 450 10/16/2011 Normal [facility] Lymphocytes # 3.5 K/CMM 1.0 - 5.5 10/16/2011 Normal [facility] HEMATOLOGY Monocytes # 0.9 K/CMM 0.0 - 0.8 10/16/2011 [facility] HEMATOLOGY Basophils # 0.1 K/CMM 0.0 - 0.2 10/16/2011 Normal [facility] HEMATOLOGY Eosinophils # 0.5 K/CMM 0.0 - 0.5 10/16/2011 Normal [facility] HEMATOLOGY Segs-Bands # 8.8 K/CMM 1.5 - 8.1 10/16/2011 [facility] HEMATOLOGY Monocytes 6.3 % 2.0 - 12.0 10/16/2011 Normal [facility] HEMATOLOGY Lymphocytes 25.7 % 20.0 - 40.0 10/16/2011 Normal [facility] HEMATOLOGY Segs 64.0 % 45.0 - 75.0 10/16/2011 Normal [facility] HEMATOLOGY Eosinophils 3.4 % 0.0 - 4.0 10/16/2011 Normal [facility] HEMATOLOGY Basophils 0.6 % 0.0 - 1.0 10/16/2011 Normal [facility] CHEMISTRY AGAP 10.7 meq/L 10.0 - 20.0 01/14/2011 Normal [facility] CHEMISTRY Glucose Lvl 110.0 mg/dL 01/14/2011 NA 1Interpretive Data: Reference Ranges : 0 - 7 days : 41 - 90 mg/dL7 days - 150 yrs : 70 - 99 mg/dL (fasting), based on the clinical recommendations of the [place] [employer]. [facility] CHEMISTRY BUN 15.0 mg/dL 7 - 22 01/14/2011 Normal [facility] CHEMISTRY Sodium Lvl 139.0 meq/L 135 - 145 01/14/2011 Normal [facility] CHEMISTRY Creatinine Lvl 1.0 mg/dL 0.5 - 1.4 01/14/2011 [facility] Home CHEMISTRY Potassium Lvl 4.7 meq/L 3.5 - 5.1 01/14/2011 Normal [facility] CHEMISTRY Chloride Lvl 108.0 meq/L 95 - 109 01/14/2011 Normal [facility] CHEMISTRY Calcium Lvl 9.1 mg/dL 8.5 - 10.5 01/14/2011 Normal [facility] CHEMISTRY CO2 25.0 meq/L 24 - 32 01/14/2011 Normal [facility] HEMATOLOGY PTT 38.3 s 22.9 - 35.8 01/14/2011 HI 3Interpretive Data: Heparin Therapeutic Range: 57 - 92 Seconds [facility] HEMATOLOGY INR 0.98 0.85 - 1.17 01/14/2011 Normal 2Interpretive Data: RECOMMENDED RANGES FOR PROTIME INR: 2.0-3.0 for most medical and surgical thromboembolic states. 2.5-3.5 for artificial heart valves and recurrent embolism.INR SHOULD BE USED ONLY FOR PATIENTS ON STABLE ANTICOAGULANT THERAPY. [facility] HEMATOLOGY PT 13.0 s 12.0 - 14.7 01/14/2011 Normal [facility] HEMATOLOGY RBC 4.62 M/CMM 4.70 - 6.10 01/14/2011 LOW [facility] HEMATOLOGY Hgb 14.8 g/dL 14.0 - 18.0 01/14/2011 Normal [facility] HEMATOLOGY MCV 92.4 fL 80.0 - 94.0 01/14/2011 Normal [facility] HEMATOLOGY Hct 42.7 % 42.0 - 54.0 01/14/2011 Normal [facility] HEMATOLOGY MCHC 34.7 g/dL 32.0 - 36.0 01/14/2011 Normal [facility] HEMATOLOGY RDW 13.6 % 11.5 - 14.5 01/14/2011 Normal [facility] HEMATOLOGY MCH 32.0 pg 27.0 - 31.0 01/14/2011 HI [facility] HEMATOLOGY Platelet 256.0 K/CMM 133 - 450 01/14/2011 Normal [facility] HEMATOLOGY MPV 9.8 fL 7.4 - 10.4 01/14/2011 Normal [facility] HEMATOLOGY WBC 12.0 K/CMM 3.7 - 10.4 01/14/2011 HI [facility] HEMATOLOGY Eosinophils 2.7 % 0.0 - 4.0 01/14/2011 Normal [facility] HEMATOLOGY Basophils 0.4 % 0.0 - 1.0 01/14/2011 Normal [facility] HEMATOLOGY Segs-Bands # 7.4 K/CMM 1.5 - 8.1 01/14/2011 Normal [facility] HEMATOLOGY Lymphocytes # 3.6 K/CMM 1.0 - 5.5 01/14/2011 Normal [facility] HEMATOLOGY Eosinophils # 0.3 K/CMM 0.0 - 0.5 01/14/2011 Normal [facility] HEMATOLOGY Monocytes # 0.6 K/CMM 0.0 - 0.8 01/14/2011 Normal [facility] HEMATOLOGY Basophils # 0.0 K/CMM 0.0 - 0.2 01/14/2011 Normal [facility] HEMATOLOGY Lymphocytes 30.3 % 20.0 - 40.0 01/14/2011 Normal [facility] HEMATOLOGY Segs 61.7 % 45.0 - 75.0 01/14/2011 Normal [facility] HEMATOLOGY Monocytes 4.9 % 2.0 - 12.0 01/14/2011 Normal [facility] Vital Signs Vital Sign Value Date Comments Source Systolic (mm Hg) 123 12/14/2015 [facility] Diastolic (mm Hg) 71 12/14/2015 [facility] Respitory Rate 18 12/14/2015 [facility] Heart Rate 58 12/14/2015 [facility] Temperature Oral (F) 97.8 F 12/14/2015 [facility] BMI Calculated 27.43 12/14/2015 [facility] Weight 81.818 12/14/2015 [facility] Respitory Rate 16 12/14/2015 [facility] Systolic (mm Hg) 114 12/14/2015 [facility] Diastolic (mm Hg) 66 12/14/2015 [facility] Heart Rate 64 12/14/2015 [facility] Temperature Oral (F) 97.6 F 12/14/2015 [facility] Height 172.72 cm 12/14/2015 [facility] Respitory Rate 18 06/18/2015 [facility] Heart Rate 66 06/18/2015 [facility] Temperature Oral (F) 97.5 F 06/18/2015 [facility] Systolic (mm Hg) 157 06/18/2015 [facility] Diastolic (mm Hg) 83 06/18/2015 [facility] Systolic (mm Hg) 154 06/18/2015 [facility] Diastolic (mm Hg) 86 06/18/2015 [facility] Respitory Rate 18 06/18/2015 [facility] Heart Rate 75 06/18/2015 [facility] Temperature Oral (F) 98 F 06/18/2015 [facility] Heart Rate 68 06/18/2015 [facility] Temperature Oral (F) 98 F 06/18/2015 [facility] Respitory Rate 18 06/18/2015 [facility] Systolic (mm Hg) 165 06/18/2015 [facility] Diastolic (mm Hg) 78 06/18/2015 [facility] BMI Calculated 28.09 06/17/2015 [facility] Height 170.18 [...] 12 08/20/2014 [facility] Respitory Rate 10 08/20/2014 [facility] Heart Rate 57 08/20/2014 [facility] Height 170.18 cm 08/13/2014 [facility] Weight 80 08/13/2014 [facility] BMI Calculated 27.62 08/13/2014 [facility] Heart Rate 61 08/13/2014 [facility] Temperature Oral (F) 98.2 F 08/13/2014 [facility] Temperature Oral (F) 98.2 F 10/16/2011 [facility] Respitory Rate 18 10/16/2011 [facility] Systolic (mm Hg) 147 10/16/2011 [facility] Diastolic (mm Hg) 78 10/16/2011 [facility] Heart Rate 60 10/16/2011 [facility] Height 170.18 cm 10/16/2011 [facility] Weight 81.818 10/16/2011 [facility] Weight 79.545 09/23/2011 [facility] Height 170.18 cm 09/23/2011 [facility] Heart Rate 64.0 01/14/2011 [facility] Systolic (mm Hg) 147.0 01/14/2011 [facility] Respitory Rate 18.0 01/14/2011 [facility] Temperature Oral (F) 98.5 F 01/14/2011 [facility] Diastolic (mm Hg) 79.0 01/14/2011 [facility] Weight 84.091 01/14/2011 [facility] Height 170.18 cm 01/14/2011 [facility] Encounters Location Location Details Encounter Type Encounter Number Reason For Visit Attending Provider ADM Date DC Date Status Source [facility] MINDY [id number] PVD SARAH BRYAN 12/18/2010 12/18/2010 Active [facility] MINDY [id number] SARAH BRYAN 01/15/2011 01/15/2011 Active [facility] Outpatient [id number] BLE DX:440.21 SARAH BRYAN 09/23/2011 Active [facility] MINDY [id number] SARAH BRYAN 10/19/2011 10/19/2011 Active [facility] OBS Day Surgery [id number] Kobi Montse 08/17/2014 08/20/2014 [facility] OBS Observation Patient [id number] Adnan Nick 06/17/2015 06/18/2015 [facility] Outpatient [id number] Adnan Nick 06/25/2015 06/26/2015 [facility] Medical [place] OP Therapy Patients [id number] Adnan Nick 11/13/2015 12/13/2015 [facility] Medical [facility] Emergency [id number] Ulises Mart 12/14/2015 12/14/2015 [facility] Outpatient [id number] Foster Powersr 04/15/2017 04/16/2017 [facility] Outpatient [id number] Foster Araujo 04/19/2017 04/20/2017 [facility] Preadmit [id number] UNK SARAH Maldonado [facility] Procedures Procedure Code Date Perfomer Comments Source Bypass [id number] [facility] Bypass [id number] [facility]
--- OUTSIDE RECORDS SUMMARY | 2018-04-26 08:46 | XMS REPORT ---
Author Author [facility] Address Unknown Phone Unavailable Care Team Providers Care Dressing Machine Operator Name Role Phone DANIELLA STEPHENSON Unavailable Unavailable Problems This patient has no known problems. Allergies, Adverse Reactions, Alerts This patient has no known allergies or adverse reactions. Medications This patient has no known medications. Results Test Description Test Time Test Comments Text Results Atomic Results Result Comments CHEST SINGLE (PORTABLE) 2018-04-02 10:05:00 [place] [address] Patient Name: LANEY KELLOGG MR #: [id number] : 1945 Age/Sex: 72/M Req #: [id number] Adm Physician: DANIELLA STEPHENSON MD Ordered by: SCOOBY HARRISON DO Report #: [id number] Location: [facility] Room/Bed: [place] [address] Procedure: [id number] DX/CHEST SINGLE (PORTABLE) Exam Date: 04/02/18 Exam Time: 0945 REPORT STATUS: Signed EXAMINATION: CHEST SINGLE (PORTABLE) COMPARISON: None FINDINGS: TUBES and LINES: None. LUNGS: Lungs are well inflated. Minimal patchy dependent atelectasis. There is no evidence of pneumonia or pulmonary edema. PLEURA: No pleural effusion or pneumothorax. HEART AND MEDIASTINUM: The cardiomediastinal silhouette is unremarkable. BONES AND SOFT TISSUES: No acute osseous lesion. Soft tissues are unremarkable. UPPER ABDOMEN: No free air under the diaphragm. IMPRESSION: No acute radiographic abnormality. Signed by: Dr. Evan Walsh MD on 04/02/2018 10:08 AM Dictated By: EAVN WALSH MD [id number] Transcribed By: BUBBA on 04/02/18 1008 COPY TO: SCOOBY HARRISON DO
[2018-04-26] MEDS ORDERED: SODIUM CHLORIDE 0.9% 1000ML 1,000 ML ONE ×2 (09:31→10:20)
[2018-04-26] MEDS ORDERED: ALPRAZOLAM 0.5 MG TAB ONE (09:31)
[2018-04-26] MEDS ORDERED: DIPHENHYDRAMINE HCL 25 MG CAP ONE (09:31)
[2018-04-26] MEDS ORDERED: MIDAZOLAM HCL 2 MG/2 ML VIAL ONE ×2 (09:33→10:02)
[2018-04-26] MEDS ORDERED: HEPARIN SOD/SOD CHLORIDE 2,000 ML ONE (09:33)
[2018-04-26] MEDS ORDERED: FENTANYL CITRATE/PF 100MCG/2 ML INJ ONE (09:33)
[2018-04-26] MEDS ORDERED: LIDOCAINE HCL 1% LOCAL INJ 20 ML VIAL ONE (09:34)
[2018-04-26] MEDS ORDERED: IOPAMIDOL 300MG/ML 100 ML INFUS..BTL IV ONE (09:34)
[2018-04-26] MEDS ORDERED: HEPARIN SOD (PORCINE) 1000 UNIT/ML 30ML ONE (10:10)
[2018-04-26] MEDS ORDERED: VERAPAMIL HCL 2.5 MG/ML 2 ML VIAL ONE (10:20)
[2018-04-26] MEDS ORDERED: PROTAMINE SULFATE 10 MG/ML 5 ML VIAL ONE (10:40)
[2018-04-26] MEDS ORDERED: HYDRALAZINE HCL 20 MG/ML VIAL ONE (10:41)
[2018-04-26] MEDS ORDERED: TICAGRELOR 90 MG TABLET ONE (10:41)
[2018-04-26] MEDS ORDERED: ASPIRIN 325 MG TAB ONE (10:41)
--- NOTE | 2018-04-26 11:04 | NUR ---
Patient to cathode builder holding room 10. Sheath remains intact to left dorsal knee. No bleeding or hematoma noted. Patient awaiting ACT prior to pulling sheath.
--- NOTE | 2018-04-26 11:28 | NUR ---
ACT resulted 140. Mars Little, cvt at bedside. Sheath pulled and pressure being held.
--- NOTE | 2018-04-26 11:43 | NUR ---
Hemostasis obtained. No bleeding or hematoma noted to site. at bedside. Vital signs remain stable.
--- NOTE | 2018-04-26 12:09 | NUR ---
Patient to admit to room 177 until discharge. Report called to ISIDRO Dubois. Patient trasported to floor via stretcher.
--- NOTE | 2018-04-26 12:15 | NUR ---
PT RECEIVED TO ROOM 177 FROM [facility], AA/O X3, NO C/O AT PRESENT. ADM ASSESSMENT COMPLETE, VSS. ORIENTED TO ROOM AND CALL SYSTEM. DRESSING TO POSTERIOR LEFT KNEE INTACT, NO HEMATOMA.
--- OUTSIDE RECORDS SUMMARY | 2018-04-26 12:55 | XMS REPORT | Clinical Summary ---
Author Author [facility] Address Unknown Phone Unavailable Care Team Providers Care Port Captain Name Role Phone Breanna Romero MD PCP [...] Taken Vital Sign Reading 05/25/2017 1:21 PM TELEPHONY ENGINEER Blood Pressure 135/71 05/25/2017 1:21 PM TELEPHONY ENGINEER Pulse 77 - Temperature - - Respiratory Rate - - Oxygen Saturation - - Inhaled Oxygen - Concentration 05/25/2017 1:21 PM TELEPHONY ENGINEER Weight 85.3 kg (188 lb) 05/25/2017 1:21 PM TELEPHONY ENGINEER Height 170.2 cm (5' 7") 05/25/2017 1:21 PM TELEPHONY ENGINEER Body Mass Index 29.44 Plan of Treatment Health Maintenance Due Date Last Done Comments COLON CANCER SCREENING 11/12/1995 SHINGLES VACCINES (1 of 11/12/1995 2) PNEUMOCOCCAL 2010 POLYSACCHARIDE VACCINE AGE 65 AND OVER PNEUMOCOCCAL-13 2010 INFLUENZA VACCINE 11/03/2017 Results Not on fileafter 04/25/2017 Insurance Payer Benefit Subscriber ID Type Phone Address Plan / Group MEDICARE MEDICARE xxxxxxxxxx Medicare [place], [place] PART A AND B BANKERS LIFE AND CASUALTY BANKERS xxxxxxxxx Commercial LIFE AND CASUALTY Advance Directives Patient has advance care planning documents on file. For more information, davida enciso contact: Pj Oconnor [phone] [place] [address]
[2018-04-26] MEDS ORDERED: HYDRALAZINE HCL 20 MG/ML VIAL IV PRN (13:30)
[2018-04-26] MEDS ORDERED: SODIUM CHLORIDE 0.9% 1000ML 1,000 ML IV SCH (13:30)
[2018-04-26] MEDS ORDERED: MORPHINE SULFATE 2 MG/ML SYR 1ML IV PRN (13:30)
[2018-04-26] MEDS ORDERED: MORPHINE SULFATE INJ 4 MG/ML INJ 1ML IV PRN (13:45)
--- NOTE | 2018-04-26 14:20 | Operative Report ---
DATE OF PROCEDURE: April 26, 2018 INDICATIONS: Peripheral arterial disease, claudication of the left lower extremity. PROCEDURES PERFORMED 1. Ultrasound guided access into the left popliteal artery with third-order catheter placement for unilateral extremity angiogram. 2. Atherectomy and drug-coated balloon angioplasty of the left femoral artery. 3. Secondary thrombectomy of the left femoral artery. COMPLICATIONS: None. BLOOD LOSS: 5 mL. RECOMMENDATIONS: Dual antiplatelet therapy for life. Access was obtained in the left popliteal artery using ultrasound guidance. A 6-Afghan sheath was placed. The patient received 10,000 units of intravenous heparin, oral Brilinta and aspirin for anticoagulation. 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 Wire exchanged to a ViperWire. Orbital atherectomy was performed with large amounts of visible thrombus necessitating secondary aspiration thrombectomy. Serial balloon angioplasty using 6-mm drug-coated balloons was performed. Excellent end result. Resolution of complete gradient across the occluded femoral artery. The patient was administered protamine to reverse the heparin effect. Sheath was removed under manual pressure. Patient discharged home the same day. DANIELLA STEPHENSON MD Job#: [id number]
--- NOTE | 2018-04-26 18:35 | NUR ---
DISCHARGE INSTRUCTIONS REVEIWED WITH PT AND , ALL QUESTIONS ANSWERED. NO RX PROVIDED AT THIS TIME. REVIEWED FOLLOW UP APPT WITH DR STEPHENSON. #20IV TO LEFT HAND REMOVED WITH TIP INTACT, PRESSURE DRESSING APPLIED.
--- NOTE | 2018-04-26 18:50 | NUR ---
PT LEFT FLOOR WITH ALL BELONGINGS VIA W/C
== END 2018-04-26 18:50 | disposition home or self-care (01) ==
LOC: CATH LAB 08:43 → CATH LAB V 12:46 → IMCU 12:55
PROVIDERS: ADMIT Internal Medicine Interventional Cardiology; ATTEND Internal Medicine Interventional Cardiology
DX: I73.9 Peripheral vascular disease, unspecified (principal); R07.9 Chest pain, unspecified; R09.89 Other specified symptoms and signs involving the circulatory and respiratory systems; E11.9 Type 2 diabetes mellitus without complications; I10 Essential (primary) hypertension; J44.9 Chronic obstructive pulmonary disease, unspecified; E78.00 Pure hypercholesterolemia, unspecified; Z86.73 Personal history of transient ischemic attack (TIA), and cerebral infarction without residual deficits; Z13.6 Encounter for screening for cardiovascular disorders; Z01.812 Encounter for preprocedural laboratory examination; Z82.3 Family history of stroke; Z82.49 Family history of ischemic heart disease and other diseases of the circulatory system; Z79.84 Long term (current) use of oral hypoglycemic drugs
CPT/HCPCS: 36415 ×2; 37186; 37225; 75625; 75710; 80053; 82948; 85025; 85347; 85610; C1724; C1725; C1766; C1769 ×3; C2623; G0378; J0360; J1644; J2001; J2250; J2720; J7030; Q9967; 36247; C1887

== ENCOUNTER → 2018-05-31 | Day surgery (SDC) | payer MEDICARE, OTHER ==
[2018-05-27 10:57] LABS: BASOPHILS % 0.4 % (0.0-1.0); EOSINOPHILS # (AUTO) 0.3 (0.0-0.4); EOSINOPHILS % 2.3 % (0.0-6.0); HEMOGLOBIN 13.9 g/dL (14.0-18.0); LYMPHOCYTES # (AUTO) 2.7 (1.0-3.2); LYMPHOCYTES % 24.7 % (18.0-39.1); MEAN CORPUSCULAR HGB CONC 33.9 g/dL (31-35); MEAN CORPUSCULAR VOLUME 91.3 fL (81-99); MONOCYTES # (AUTO) 0.7 (0.2-0.8); MONOCYTES % 6.9 % (4.4-11.3); NEUTROPHILS % 65.3 % (38.7-80.0); PLATELET COUNT 238 x10e3/uL (140-360); RED BLOOD COUNT 4.49 x10e6/uL (4.3-5.7)
[2018-05-27 11:22] LABS: ALANINE AMINOTRANSFERASE 23 IU/L (0-55); ALBUMIN 3.9 g/dL (3.5-5.0); ALBUMIN/GLOBULIN RATIO 1.4 (0.8-2.0); ALKALINE PHOSPHATASE 98 IU/L (40-150); ANION GAP 12.2 mmol/L (8-16); BLOOD UREA NITROGEN 15 mg/dL (7-26); BUN/CREATININE RATIO 16 (6-25); CARBON DIOXIDE 25 mmol/L (22-29); CHLORIDE 106 mmol/L (98-107); CREATININE, SERUM 0.91 mg/dL (0.72-1.25); EST GLOMERULAR FILTRATION RATE > 60 ML/MIN (60-); GLUCOSE 105 mg/dL (74-118); POTASSIUM 4.2 mmol/L (3.5-5.1); SODIUM 139 mmol/L (136-145)
[~2018-05-31] VITALS: Ht 170.2 cm; Wt 88.5 kg
[~2018-05-31] MED LIST changes: +ALPRAZOLAM 0.5 MG TAB ONE; +ASPIRIN 325 MG TAB ONE; +DIPHENHYDRAMINE HCL 25 MG CAP ONE; +FENTANYL CITRATE/PF 100MCG/2 ML INJ ONE; +HEPARIN SOD (PORCINE) 1000 UNIT/ML 30ML ONE; +HEPARIN SOD/SOD CHLORIDE 2,000 ML ONE; +IOPAMIDOL 300MG/ML 100 ML INFUS..BTL IV ONE; +LIDOCAINE HCL 1% LOCAL INJ 20 ML VIAL ONE; +MIDAZOLAM HCL 2 MG/2 ML VIAL ONE; +PROTAMINE SULFATE 10 MG/ML 5 ML VIAL ONE; +SODIUM CHLORIDE 0.9% 1000ML 1,000 ML ONE; +TICAGRELOR 90 MG TABLET ONE
--- OUTSIDE RECORDS SUMMARY | 2018-05-31 10:27 | XMS REPORT | Clinical Summary ---
Author Author [facility] Address Unknown Phone Unavailable Care Team Providers Care Border Patrol Agent Name Role Phone Breanna Romero MD PCP [...] on exertion 05/25/2017 Tobacco abuse counseling 05/25/2017 Family History Medical History Relation Name Comments [...] travel history available. Last Filed Vital Signs Not on file Plan of Treatment Health Maintenance Due Date Last Done Comments COLON CANCER SCREENING 11/12/1995 SHINGLES VACCINES (#1) 11/12/1995 65+ PNEUMOCOCCAL VACCINE 2010 (1 of 2 - PCV13) PNEUMOCOCCAL 2010 POLYSACCHARIDE VACCINE AGE 65 AND OVER INFLUENZA VACCINE 11/03/2017 Results Not on fileafter 05/30/2017 Insurance Payer Benefit Subscriber ID Type Phone Address Plan / Group MEDICARE MEDICARE xxxxxxxxxx Medicare [place], [place] PART A AND B BANKERS LIFE AND CASUALTY BANKERS xxxxxxxxx Commercial LIFE AND CASUALTY Advance Directives Patient has advance care planning documents on file. For more information, davida enciso contact: Pj Oconnor [address] [place] [address]
[2018-05-31 10:47] VITALS: BP 160/86
[2018-05-31 13:08] VITALS: BP 178/81
--- NOTE | 2018-05-31 13:08 | NUR ---
1308p Received pt to Rm #[id number]. Report from Effie FELIX. s/p Right Peripheral fix with left vascade closure . Identifier x2.Pop stent in place. Bilateral pedal pulses present . Family at bedside. Md to speak with pt and family. Alexandra at bedside. Back to baseline PERRLA. Resp shallow and regular 100% sat Abdomen soft and nn tender denies necessity to defecate or urinate. Left of 100cchr site w/o s/s infiltration. left vascade closure site w/o bleeding or hematoma. ds/hermilo
[2018-05-31 13:15] VITALS: BP 158/69
[2018-05-31 13:30] VITALS: BP 162/98
--- NOTE | 2018-05-31 14:30 | NUR ---
Handoff to Lai Rn left vascade site w/o hematoma or bleeding. Lucio Pedal pulses remain intact. at beside for dc at 1500. dc paper and discharge to be done by cath team staff. Remain stable w/o c/o no distress. aware of importance of f/o care. Stable vs and ekg. Left pt Siderails up ,call light at bedside ,bed in low position Regular finger food diet ordered. ds/rn
--- NOTE | 2018-05-31 20:19 | Operative Report ---
DATE OF PROCEDURE: 05/31/2018 SURGEON: Tee Vásquez MD INDICATION: Peripheral arterial disease, claudication. PROCEDURES PERFORMED: 1. Third-order catheter placement in the left femoral artery, the right superficial femoral artery bypass graft with unilateral lower extremity angiogram. 2. Angioplasty of the distal right femoral popliteal bypass graft. 3. Stent placement to the right anterior tibial artery. 4. Additional third-order catheter placement in the left femoral artery, right anterior tibial artery. 5. Deployment of left groin Vascade closure device. COMPLICATIONS: None. RECOMMENDATIONS: Medical therapy including dual antiplatelet therapy for life. PROCEDURE IN DETAIL: Access obtained of the left femoral artery using fluoroscopic guidance. A 6-Yoruba sheath was placed. It was advanced over a glidewire to the right fem-pop bypass. Distal anastomosis in the right anterior tibial artery of the fem-pop bypass graft had 80% to 90% stenosis. A decision was made to intervene on this vessel. The patient received 10,000 units of intravenous heparin. The lesion was crossed using a glidewire. Wire was exchanged to a Roadrunner wire. Balloon angioplasty with a 4 mm drug balloon was performed in the distal right superficial fem-pop bypass graft 4 x 30 mm Resolute [place] stent was deployed at 20 atmospheres. Excellent end result. Excellent 2-vessel runoff. The peroneal artery fill via collaterals from the right foot. Anterior tibial artery was the dominant vessel. No complications. Left groin was repaired using Vascade closure device. The patient discharged home same day. MD LIZA Cummings/JENNIL /[id number]
== END | disposition home or self-care (01) ==
LOC: CATH LAB 10:24
PROVIDERS: ATTEND Internal Medicine Interventional Cardiology
DX: I70.311 Atherosclerosis of unspecified type of bypass graft(s) of the extremities with intermittent claudication, right leg (principal); M79.605 Pain in left leg; M79.604 Pain in right leg; Z95.820 Peripheral vascular angioplasty status with implants and grafts; Z01.812 Encounter for preprocedural laboratory examination; Z87.891 Personal history of nicotine dependence
CPT/HCPCS: 36415 ×2; 37224; 37230; 80053; 82948; 85025; 85347; C1725; C1760; C1769 ×2; C1874; C1887; J1644; J2001; J2250; J2720; J7030; Q9967; 36247; 75716